=== PATIENT | female | born 1955 | race Caucasian/White ===

== ENCOUNTER 2024-12-14 16:47 | Emergency (ER) | payer OTHER ==
--- OUTSIDE RECORDS SUMMARY | 2024-12-14 16:53 | XMS REPORT | Continuity of Care Document ---
Author Name Unknown Address [address] [facility] [address] [place] [address] [facility] Address [address] [facility] [address] [place] [address] Care Team Providers Care Manager Division Name Role Phone Alicia Woodard Attending Clinician Unavailable Geovanna FORD Attending Clinician Unavailable Payers Payer Name Policy Type Policy Number Effective Date Expirati on Date Source [facility] Medicare Advantage 53 [id number] 00 2020 00:00:00 [facility] Problems Condition Name Condition Details Condition Category Status Onset Date Resolution Date Last Treatment Date Treating Clinician Comments Source [id number] Urinary incontinen ce in female Problem [facility] [id number] History of hepatitis B Problem [facility] [id number] Osteopenia of multiple sites Problem [facility] [id number] Rash and nonspecifi c skin eruption Problem [facility] [id number] Skin lesions Problem [facility] Abnormal mammogram Abnormal mammogram Problem [facility] [id number] Routine eye exam Problem [facility] [id number] Vitamin D deficiency Problem [facility] [id number] Hyperchole sterolemia Problem [facility] [id number] Pain in left shoulder Problem [facility] [id number] History of hysterecto my Problem [facility] [id number] Pain in right knee Problem [facility] Social History Social Habit Start Date Stop Date Quantity Comments Source History of Tobacco Use [facility] Sex Assigned At [facility] Smoking Status Start Date Stop Date Source Never Smoker [facility] Medications Ordered Medication Name Filled Medication Name Start Date Stop Date Current Medication? Ordering Clinician Indication Dosage Frequency Signature (SIG) Comments Components Source Atorvastati n Calcium 40 MG Atorvastati n Calcium 40 MG 01-08 00:00: 00 No 1{table t} QD Atorvastat in Calcium 40 MG Bupivicaine [place] Bupivicaine [place] 2019-05 00:00: 00 No 2.5mg [facility] Kenalog (Triamcinol one) Kenalog (Triamcinol one) 2019-05 00:00: 00 No 40mg [facility] Vitamin D 50 MCG (1999 UT) Vitamin D 50 MCG (1999 UT) No 1{table t} QD Vitamin D 50 MCG (1999 UT) Calcium Calcium No Calcium Biotin 5000 MCG Biotin 5000 MCG No 1{table t} QD Biotin 5000 MCG Centrum Adult 50+ MultiGummie s - Centrum Adult 50+ MultiGummie s - No Centrum Adult 50+ MultiGummi es - Immunizations Ordered Immunization Name Filled Immunization Name Date Status Comments Source Moderna COVID-19 Vaccine (Low Dose Booster) Moderna COVID-19 Vaccine (Low Dose Booster) 2021-02-25 09:40:00 Completed [facility] Moderna COVID-19 Vaccine (Low Dose Booster) Moderna COVID-19 Vaccine (Low Dose Booster) 2021-02-25 09:40:00 Completed [facility] Moderna COVID-19 Vaccine (Low Dose Booster) Moderna COVID-19 Vaccine (Low Dose Booster) 2021-02-25 09:40:00 Completed [facility] Moderna COVID-19 Vaccine (Low Dose Booster) Moderna COVID-19 Vaccine (Low Dose Booster) 2021-02-25 09:40:00 Completed [facility] Moderna COVID-19 Vaccine (Low Dose Booster) Moderna COVID-19 Vaccine (Low Dose Booster) 2021-02-25 09:40:00 Completed [facility] Pneumovax (PPSV23) Pneumovax (PPSV23) 2021-02-03 09:40:00 Completed [facility] Pneumovax (PPSV23) Pneumovax (PPSV23) 2021-02-03 09:40:00 Completed [facility] Pneumovax (PPSV23) Pneumovax (PPSV23) 2021-02-03 09:40:00 Completed [facility] Pneumovax (PPSV23) Pneumovax (PPSV23) 2021-02-03 09:40:00 Completed [facility] Pneumovax (PPSV23) Pneumovax (PPSV23) 2021-02-03 09:40:00 Completed [facility] FLUZONE HIGH DOSE OVER 65 FLUZONE HIGH DOSE OVER 65 2021-02-03 09:38:00 Completed [facility] FLUZONE HIGH DOSE OVER 65 FLUZONE HIGH DOSE OVER 65 2021-02-03 09:38:00 Completed [facility] FLUZONE HIGH DOSE OVER 65 FLUZONE HIGH DOSE OVER 65 2021-02-03 09:38:00 Completed [facility] FLUZONE HIGH DOSE OVER 65 FLUZONE HIGH DOSE OVER 65 2021-02-03 09:38:00 Completed [facility] FLUZONE HIGH DOSE OVER 65 FLUZONE HIGH DOSE OVER 65 2021-02-03 09:38:00 Completed [facility] Moderna COVID-19 Vaccine Moderna COVID-19 Vaccine 2020-06-14 09:39:00 Completed [facility] Moderna COVID-19 Vaccine Moderna COVID-19 Vaccine 2020-06-14 09:39:00 Completed [facility] Moderna COVID-19 Vaccine Moderna COVID-19 Vaccine 2020-06-14 09:39:00 Completed [facility] Moderna COVID-19 Vaccine Moderna COVID-19 Vaccine 2020-06-14 09:39:00 Completed [facility] Moderna COVID-19 Vaccine Moderna COVID-19 Vaccine 2020-06-14 09:39:00 Completed [facility] Moderna COVID-19 Vaccine Moderna COVID-19 Vaccine 2020-05-08 09:39:00 Completed [facility] Moderna COVID-19 Vaccine Moderna COVID-19 Vaccine 2020-05-08 09:39:00 Completed [facility] Moderna COVID-19 Vaccine Moderna COVID-19 Vaccine 2020-05-08 09:39:00 Completed [facility] Moderna COVID-19 Vaccine Moderna COVID-19 Vaccine 2020-05-08 09:39:00 Completed [facility] Moderna COVID-19 Vaccine Moderna COVID-19 Vaccine 2020-05-08 09:39:00 Completed [facility] Bupivicaine [place] Bupivicaine [place] 2020-03-15 16:04:00 Completed [facility] Kenalog (Triamcinolone) Kenalog (Triamcinolone) 2020-03-15 16:03:00 Completed [facility] Prevnar 13 (PCV13) Prevnar 13 (PCV13) 2020-02-18 11:13:00 Completed [facility] Prevnar 13 (PCV13) Prevnar 13 (PCV13) 2020-02-18 11:13:00 Completed [facility] Prevnar 13 (PCV13) Prevnar 13 (PCV13) 2020-02-18 11:13:00 Completed [facility] Prevnar 13 (PCV13) Prevnar 13 (PCV13) 2020-02-18 11:13:00 Completed [facility] Prevnar 13 (PCV13) Prevnar 13 (PCV13) 2020-02-18 11:13:00 Completed [facility] FluAD FluAD 2020-02-18 11:12:00 Completed [facility] FluAD FluAD 2020-02-18 11:12:00 Completed [facility] FluAD FluAD 2020-02-18 11:12:00 Completed [facility] FluAD FluAD 2020-02-18 11:12:00 Completed [facility] FluAD FluAD 2020-02-18 11:12:00 Completed [facility] Flucelvax - single dose syringe Flucelvax - single dose syringe 2019-03-09 08:21:00 Completed [facility] Flucelvax - single dose syringe Flucelvax - single dose syringe 2019-03-09 08:21:00 Completed [facility] Flucelvax - single dose syringe Flucelvax - single dose syringe 2019-03-09 08:21:00 Completed [facility] Flucelvax - single dose syringe Flucelvax - single dose syringe 2019-03-09 08:21:00 Completed [facility] Flucelvax - single dose syringe Flucelvax - single dose syringe 2019-03-09 08:21:00 Completed [facility] Flucelvax - single dose syringe Flucelvax - single dose syringe 2019-03-09 00:00:00 Completed [facility] Flucelvax - multidose vial Flucelvax - multidose vial 2018-03-03 10:25:00 Completed [facility] Flucelvax - multidose vial Flucelvax - multidose vial 2018-03-03 10:25:00 Completed [facility] Flucelvax - multidose vial Flucelvax - multidose vial 2018-03-03 10:25:00 Completed [facility] Flucelvax - multidose vial Flucelvax - multidose vial 2018-03-03 10:25:00 Completed [facility] Flucelvax - multidose vial Flucelvax - multidose vial 2018-03-03 10:25:00 Completed [facility] Adacel (Tdap) Adacel (Tdap) 2015-11-04 09:41:00 Completed [facility] Adacel (Tdap) Adacel (Tdap) 2015-11-04 09:41:00 Completed [facility] Adacel (Tdap) Adacel (Tdap) 2015-11-04 09:41:00 Completed [facility] Adacel (Tdap) Adacel (Tdap) 2015-11-04 09:41:00 Completed [facility] Adacel (Tdap) Adacel (Tdap) 2015-11-04 09:41:00 Completed [facility] Moderna COVID-19 Vaccine Moderna COVID-19 Vaccine Unknown Completed [facility] Flucelvax - multidose vial Flucelvax - multidose vial Unknown Completed [facility] FluAD FluAD Unknown Completed [facility] Flucelvax - single dose syringe Flucelvax - single dose syringe Unknown Completed [facility] Pneumovax (PPSV23) Pneumovax (PPSV23) Unknown Completed [facility] Moderna COVID-19 Vaccine (Low Dose Booster) Moderna COVID-19 Vaccine (Low Dose Booster) Unknown Completed [facility] FLUZONE HIGH DOSE OVER 65 FLUZONE HIGH DOSE OVER 65 Unknown Completed [facility] Adacel (Tdap) Adacel (Tdap) Unknown Completed [facility] Prevnar 13 (PCV13) Prevnar 13 (PCV13) Unknown Completed [facility] Moderna COVID-19 Vaccine Moderna COVID-19 Vaccine Unknown Completed [facility] Flucelvax - multidose vial Flucelvax - multidose vial Unknown Completed [facility] FluAD FluAD Unknown Completed [facility] Flucelvax - single dose syringe Flucelvax - single dose syringe Unknown Completed [facility] Pneumovax (PPSV23) Pneumovax (PPSV23) Unknown Completed [facility] Moderna COVID-19 Vaccine (Low Dose Booster) Moderna COVID-19 Vaccine (Low Dose Booster) Unknown Completed [facility] FLUZONE HIGH DOSE OVER 65 FLUZONE HIGH DOSE OVER 65 Unknown Completed [facility] Adacel (Tdap) Adacel (Tdap) Unknown Completed [facility] Prevnar 13 (PCV13) Prevnar 13 (PCV13) Unknown Completed [facility] Moderna COVID-19 Vaccine Moderna COVID-19 Vaccine Unknown Completed [facility] Flucelvax - multidose vial Flucelvax - multidose vial Unknown Completed [facility] FluAD FluAD Unknown Completed [facility] Flucelvax - single dose syringe Flucelvax - single dose syringe Unknown Completed [facility] Pneumovax (PPSV23) Pneumovax (PPSV23) Unknown Completed [facility] Moderna COVID-19 Vaccine (Low Dose Booster) Moderna COVID-19 Vaccine (Low Dose Booster) Unknown Completed [facility] FLUZONE HIGH DOSE OVER 65 FLUZONE HIGH DOSE OVER 65 Unknown Completed [facility] Adacel (Tdap) Adacel (Tdap) Unknown Completed [facility] Prevnar 13 (PCV13) Prevnar 13 (PCV13) Unknown Completed [facility] Moderna COVID-19 Vaccine Moderna COVID-19 Vaccine Unknown Completed [facility] Flucelvax - multidose vial Flucelvax - multidose vial Unknown Completed [facility] FluAD FluAD Unknown Completed [facility] Flucelvax - single dose syringe Flucelvax - single dose syringe Unknown Completed [facility] Pneumovax (PPSV23) Pneumovax (PPSV23) Unknown Completed [facility] Moderna COVID-19 Vaccine (Low Dose Booster) Moderna COVID-19 Vaccine (Low Dose Booster) Unknown Completed [facility] FLUZONE HIGH DOSE OVER 65 FLUZONE HIGH DOSE OVER 65 Unknown Completed [facility] Adacel (Tdap) Adacel (Tdap) Unknown Completed [facility] Prevnar 13 (PCV13) Prevnar 13 (PCV13) Unknown Completed [facility] Moderna COVID-19 Vaccine Moderna COVID-19 Vaccine Unknown Completed [facility] Flucelvax (ccIIV4) - MDV - 0.5mL Flucelvax (ccIIV4) - MDV - 0.5mL Unknown Completed [facility] FluAD FluAD Unknown Completed [facility] Flucelvax (ccIIV4) - SDS - 0.5mL Flucelvax (ccIIV4) - SDS - 0.5mL Unknown Completed [facility] Pneumovax (PPSV23) Pneumovax (PPSV23) Unknown Completed [facility] Moderna COVID-19 Vaccine (Low Dose Booster) Moderna COVID-19 Vaccine (Low Dose Booster) Unknown Completed [facility] FLUZONE HIGH DOSE OVER 65 FLUZONE HIGH DOSE OVER 65 Unknown Completed [facility] Adacel (Tdap) Adacel (Tdap) Unknown Completed [facility] Prevnar 13 (PCV13) Prevnar 13 (PCV13) Unknown Completed [facility] Moderna COVID-19 Vaccine Moderna COVID-19 Vaccine Unknown Completed [facility] Flucelvax (ccIIV4) - MDV - 0.5mL Flucelvax (ccIIV4) - MDV - 0.5mL Unknown Completed [facility] FluAD FluAD Unknown Completed [facility] Flucelvax (ccIIV4) - SDS - 0.5mL Flucelvax (ccIIV4) - SDS - 0.5mL Unknown Completed [facility] Pneumovax (PPSV23) Pneumovax (PPSV23) Unknown Completed [facility] Moderna COVID-19 Vaccine (Low Dose Booster) Moderna COVID-19 Vaccine (Low Dose Booster) Unknown Completed [facility] FLUZONE HIGH DOSE OVER 65 FLUZONE HIGH DOSE OVER 65 Unknown Completed [facility] Adacel (Tdap) Adacel (Tdap) Unknown Completed [facility] on [facility] Prevnar 13 (PCV13) Prevnar 13 (PCV13) Unknown Completed [facility] Moderna COVID-19 Vaccine Moderna COVID-19 Vaccine Unknown Completed [facility] Flucelvax (ccIIV4) - MDV - 0.5mL Flucelvax (ccIIV4) - MDV - 0.5mL Unknown Completed [facility] FluAD FluAD Unknown Completed [facility] Flucelvax (ccIIV4) - SDS - 0.5mL Flucelvax (ccIIV4) - SDS - 0.5mL Unknown Completed [facility] Pneumovax (PPSV23) Pneumovax (PPSV23) Unknown Completed [facility] Moderna COVID-19 Vaccine (Low Dose Booster) Moderna COVID-19 Vaccine (Low Dose Booster) Unknown Completed [facility] FLUZONE HIGH DOSE OVER 65 FLUZONE HIGH DOSE OVER 65 Unknown Completed [facility] Adacel (Tdap) Adacel (Tdap) Unknown Completed [facility] Prevnar 13 (PCV13) Prevnar 13 (PCV13) Unknown Completed [facility] Moderna COVID-19 Vaccine Moderna COVID-19 Vaccine Unknown Completed [facility] Flucelvax (ccIIV4) - MDV - 0.5mL Flucelvax (ccIIV4) - MDV - 0.5mL Unknown Completed [facility] FluAD FluAD Unknown Completed [facility] Flucelvax (ccIIV4) - SDS - 0.5mL Flucelvax (ccIIV4) - SDS - 0.5mL Unknown Completed [facility] Pneumovax (PPSV23) Pneumovax (PPSV23) Unknown Completed [facility] MODERNA COVID-19 VACCINE (LOW DOSE BOOSTER) MODERNA COVID-19 VACCINE (LOW DOSE BOOSTER) Unknown Completed [facility] FLUZONE HIGH DOSE OVER 65 FLUZONE HIGH DOSE OVER 65 Unknown Completed [facility] Adacel (Tdap) Adacel (Tdap) Unknown Completed [facility] on [facility] Prevnar 13 (PCV13) Prevnar 13 (PCV13) Unknown Completed [facility] Moderna COVID-19 Vaccine Moderna COVID-19 Vaccine Unknown Completed [facility] Flucelvax (ccIIV4) - MDV - 0.5mL Flucelvax (ccIIV4) - MDV - 0.5mL Unknown Completed [facility] FluAD FluAD Unknown Completed [facility] Flucelvax (ccIIV4) - SDS - 0.5mL Flucelvax (ccIIV4) - SDS - 0.5mL Unknown Completed [facility] Pneumovax (PPSV23) Pneumovax (PPSV23) Unknown Completed [facility] MODERNA COVID-19 VACCINE (LOW DOSE BOOSTER) MODERNA COVID-19 VACCINE (LOW DOSE BOOSTER) Unknown Completed [facility] FLUZONE HIGH DOSE OVER 65 FLUZONE HIGH DOSE OVER 65 Unknown Completed [facility] Adacel (Tdap) Adacel (Tdap) Unknown Completed [facility] Prevnar 13 (PCV13) Prevnar 13 (PCV13) Unknown Completed [facility] Moderna COVID-19 Vaccine Moderna COVID-19 Vaccine Unknown Completed [facility] Flucelvax (ccIIV4) - MDV - 0.5mL Flucelvax (ccIIV4) - MDV - 0.5mL Unknown Completed [facility] FluAD FluAD Unknown Completed [facility] Flucelvax (ccIIV4) - SDS - 0.5mL Flucelvax (ccIIV4) - SDS - 0.5mL Unknown Completed [facility] Pneumovax (PPSV23) Pneumovax (PPSV23) Unknown Completed [facility] MODERNA COVID-19 VACCINE (LOW DOSE BOOSTER) MODERNA COVID-19 VACCINE (LOW DOSE BOOSTER) Unknown Completed [facility] FLUZONE HIGH DOSE OVER 65 FLUZONE HIGH DOSE OVER 65 Unknown Completed [facility] Adacel (Tdap) Adacel (Tdap) Unknown Completed [facility] Prevnar 13 (PCV13) Prevnar 13 (PCV13) Unknown Completed [facility] Moderna COVID-19 Vaccine Moderna COVID-19 Vaccine Unknown Completed [facility] Flucelvax (ccIIV4) - MDV - 0.5mL Flucelvax (ccIIV4) - MDV - 0.5mL Unknown Completed [facility] FluAD FluAD Unknown Completed [facility] Flucelvax (ccIIV4) - SDS - 0.5mL Flucelvax (ccIIV4) - SDS - 0.5mL Unknown Completed [facility] Pneumovax (PPSV23) Pneumovax (PPSV23) Unknown Completed [facility] MODERNA COVID-19 VACCINE (LOW DOSE BOOSTER) MODERNA COVID-19 VACCINE (LOW DOSE BOOSTER) Unknown Completed [facility] FLUZONE HIGH DOSE OVER 65 FLUZONE HIGH DOSE OVER 65 Unknown Completed [facility] Adacel (Tdap) Adacel (Tdap) Unknown Completed [facility] Prevnar 13 (PCV13) Prevnar 13 (PCV13) Unknown Completed [facility] Moderna COVID-19 Vaccine Moderna COVID-19 Vaccine Unknown Completed [facility] Flucelvax (ccIIV4) - MDV - 0.5mL Flucelvax (ccIIV4) - MDV - 0.5mL Unknown Completed [facility] FluAD FluAD Unknown Completed [facility] Flucelvax (ccIIV4) - SDS - 0.5mL Flucelvax (ccIIV4) - SDS - 0.5mL Unknown Completed [facility] Pneumovax (PPSV23) Pneumovax (PPSV23) Unknown Completed [facility] MODERNA COVID-19 VACCINE (LOW DOSE BOOSTER) MODERNA COVID-19 VACCINE (LOW DOSE BOOSTER) Unknown Completed [facility] FLUZONE HIGH DOSE OVER 65 FLUZONE HIGH DOSE OVER 65 Unknown Completed [facility] Adacel (Tdap) Adacel (Tdap) Unknown Completed [facility] Prevnar 13 (PCV13) Prevnar 13 (PCV13) [facility] Moderna COVID-19 Vaccine Unknown Completed [facility] Flucelvax (ccIIV4) - MDV - 0.5mL Flucelvax (ccIIV4) - MDV - 0.5mL Unknown Completed [facility] FluAD FluAD Unknown Completed [facility] Flucelvax (ccIIV4) - SDS - 0.5mL Flucelvax (ccIIV4) - SDS - 0.5mL Unknown Completed [facility] Pneumovax (PPSV23) Pneumovax (PPSV23) Unknown Completed [facility] MODERNA COVID-19 VACCINE (LOW DOSE BOOSTER) MODERNA COVID-19 VACCINE (LOW DOSE BOOSTER) Unknown Completed [facility] FLUZONE HIGH DOSE OVER 65 FLUZONE HIGH DOSE OVER 65 Unknown Completed [facility] Adacel (Tdap) Adacel (Tdap) Unknown Completed [facility] Prevnar 13 (PCV13) Prevnar 13 (PCV13) Unknown Completed [facility] Prevnar 20 (PCV20) Prevnar 20 (PCV20) Unknown Completed [facility] Shingrix Shingrix Unknown Completed [facility] Vital Signs Vital Name Observation Time Observation Value Comments Lexi kruger height 2024-07-10 15:40:00 65 [in_i] Commo n [facility] weight 2024-07-10 15:40:00 155 [lb_av] Comm on [facility] temperature 2024-07-10 15:40:00 97.3 [degF] Com [facility] bmi 2024-07-10 15:40:00 25.79 kg/m2 Comm on [facility] oximetry 2024-07-10 15:40:00 97 % Commo n [facility] respiratory rate 2024-07-10 15:40:00 16 /min [facility] blood pressure systolic 2024-07-10 15:40:00 117 mm[Hg] [facility] blood pressure diastolic 2024-07-10 15:40:00 61 mm[Hg] [facility] height 2024-07-10 15:40:00 65 [in_i] Commo n [facility] weight 2024-07-10 15:40:00 155 [lb_av] Comm on [facility] temperature 2024-07-10 15:40:00 97.3 [degF] Com [facility] bmi 2024-07-10 15:40:00 25.79 kg/m2 Comm on [facility] oximetry 2024-07-10 15:40:00 97 % Commo n [facility] respiratory rate 2024-07-10 15:40:00 16 /min [facility] blood pressure systolic 2024-07-10 15:40:00 117 mm[Hg] Common [facility] blood pressure diastolic 2024-07-10 15:40:00 61 mm[Hg] Common [facility] height 2024-01-09 11:00:00 65 [in_i] Commo n [facility] weight 2024-01-09 11:00:00 146 [lb_av] Comm on [facility] temperature 2024-01-09 11:00:00 97.3 [degF] Com [facility] bmi 2024-01-09 11:00:00 24.29 kg/m2 Comm on [facility] oximetry 2024-01-09 11:00:00 98 % Commo n [facility] respiratory rate 2024-01-09 11:00:00 16 /min [facility] blood pressure systolic 2024-01-09 11:00:00 128 mm[Hg] [facility] blood pressure diastolic 2024-01-09 11:00:00 70 mm[Hg] [facility] height 2024-01-09 11:00:00 65 [in_i] Commo n [facility] weight 2024-01-09 11:00:00 146 [lb_av] Comm on [facility] temperature 2024-01-09 11:00:00 97.3 [degF] Com [facility] bmi 2024-01-09 11:00:00 24.29 kg/m2 Comm on [facility] oximetry 2024-01-09 11:00:00 98 % Commo n [facility] respiratory rate 2024-01-09 11:00:00 16 /min [facility] blood pressure systolic 2024-01-09 11:00:00 128 mm[Hg] [facility] blood pressure diastolic 2024-01-09 11:00:00 70 mm[Hg] Common [facility] height 2023-10-09 13:40:00 65 [in_i] Commo n [facility] weight 2023-10-09 13:40:00 150 [lb_av] Comm on [facility] temperature 2023-10-09 13:40:00 97.4 [degF] Com mon [facility] bmi 2023-10-09 13:40:00 24.96 kg/m2 Comm on [facility] oximetry 2023-10-09 13:40:00 99 % Commo n [facility] respiratory rate 2023-10-09 13:40:00 16 /min Common [facility] blood pressure systolic 2023-10-09 13:40:00 124 mm[Hg] [facility] blood pressure diastolic 2023-10-09 13:40:00 76 mm[Hg] [facility] height 2023-07-08 11:40:00 65 [in_i] Commo n [facility] weight 2023-07-08 11:40:00 147 [lb_av] Comm on [facility] temperature 2023-07-08 11:40:00 97.6 [degF] Com [facility] bmi 2023-07-08 11:40:00 24.46 kg/m2 Comm on [facility] oximetry 2023-07-08 11:40:00 98 % Commo n [facility] respiratory rate 2023-07-08 11:40:00 16 /min Common [facility] blood pressure systolic 2023-07-08 11:40:00 128 mm[Hg] Common [facility] blood pressure diastolic 2023-07-08 11:40:00 72 mm[Hg] [facility] height 2023-07-03 11:00:00 65 [in_i] Commo n [facility] weight 2023-07-03 11:00:00 148 [lb_av] Comm on [facility] temperature 2023-07-03 11:00:00 97.4 [degF] Com [facility] bmi 2023-07-03 11:00:00 24.63 kg/m2 Comm on [facility] oximetry 2023-07-03 11:00:00 97 % Commo n [facility] respiratory rate 2023-07-03 11:00:00 16 /min [facility] blood pressure systolic 2023-07-03 11:00:00 124 mm[Hg] [facility] blood pressure diastolic 2023-07-03 11:00:00 59 mm[Hg] [facility] height 2023-07-03 11:00:00 65 [in_i] Commo n [facility] weight 2023-07-03 11:00:00 148 [lb_av] Comm on [facility] temperature 2023-07-03 11:00:00 97.4 [degF] Com mon [facility] bmi 2023-07-03 11:00:00 24.63 kg/m2 Comm on [facility] oximetry 2023-07-03 11:00:00 97 % Commo n [facility] respiratory rate 2023-07-03 11:00:00 16 /min [facility] blood pressure systolic 2023-07-03 11:00:00 124 mm[Hg] [facility] blood pressure diastolic 2023-07-03 11:00:00 59 mm[Hg] [facility] height 2022-10-04 14:00:00 65 [in_i] Commo n [facility] weight 2022-10-04 14:00:00 145 [lb_av] Comm on [facility] bmi 2022-10-04 14:00:00 24.13 kg/m2 Comm on [facility] height 2022-08-08 14:00:00 65 [in_i] Commo n [facility] weight 2022-08-08 14:00:00 144.6 [lb_av] Co mmon [facility] temperature 2022-08-08 14:00:00 97.4 [degF] Com mon [facility] bmi 2022-08-08 14:00:00 24.06 kg/m2 Comm on [facility] oximetry 2022-08-08 14:00:00 98 % Commo n [facility] respiratory rate 2022-08-08 14:00:00 16 /min Common [facility] blood pressure systolic 2022-08-08 14:00:00 128 mm[Hg] Common [facility] blood pressure diastolic 2022-08-08 14:00:00 72 mm[Hg] [facility] height 2022-08-08 14:20:00 65 [in_i] Commo n [facility] weight 2022-08-08 14:20:00 144.6 [lb_av] Co mmon [facility] temperature 2022-08-08 14:20:00 97.4 [degF] Com [facility] bmi 2022-08-08 14:20:00 24.06 kg/m2 Comm on [facility] oximetry 2022-08-08 14:20:00 98 % Commo n [facility] respiratory rate 2022-08-08 14:20:00 16 /min [facility] blood pressure systolic 2022-08-08 14:20:00 128 mm[Hg] Common Spiri [facility] blood pressure diastolic 2022-08-08 14:20:00 72 mm[Hg] [facility] height 2022-03-02 11:20:00 65 [in_i] Commo n [facility] weight 2022-03-02 11:20:00 139 [lb_av] Comm on [facility] temperature 2022-03-02 11:20:00 99.4 [degF] Com [facility] bmi 2022-03-02 11:20:00 23.13 kg/m2 Comm on [facility] height 2022-01-17 09:20:00 65 [in_i] Commo n [facility] weight 2022-01-17 09:20:00 144 [lb_av] Comm on [facility] bmi 2022-01-17 09:20:00 23.96 kg/m2 Comm on [facility] height 2022-01-02 13:40:00 65 [in_i] Commo n [facility] weight 2022-01-02 13:40:00 144.6 [lb_av] Co on [facility] temperature 2022-01-02 13:40:00 97.8 [degF] Com mon [facility] bmi 2022-01-02 13:40:00 24.06 kg/m2 Comm on [facility] oximetry 2022-01-02 13:40:00 100 % Commo n [facility] respiratory rate 2022-01-02 13:40:00 17 /min [facility] blood pressure systolic 2022-01-02 13:40:00 129 mm[Hg] Common [facility] blood pressure diastolic 2022-01-02 13:40:00 60 mm[Hg] [facility] oximetry 2021-04-03 08:00:00 96 % Commo n [facility] respiratory rate 2021-04-03 08:00:00 18 /min [facility] blood pressure systolic 2021-04-03 08:00:00 124 mm[Hg] [facility] blood pressure diastolic 2021-04-03 08:00:00 80 mm[Hg] Common [facility] height 2021-04-03 08:00:00 65 [in_i] Commo n [facility] weight 2021-04-03 08:00:00 148.6 [lb_av] Co mmon [facility] temperature 2021-04-03 08:00:00 97.0 [degF] Com mon [facility] bmi 2021-04-03 08:00:00 24.73 kg/m2 Comm on [facility] height 2021-03-08 08:00:00 65 [in_i] Commo n [facility] weight 2021-03-08 08:00:00 143 [lb_av] Comm on [facility] bmi 2021-03-08 08:00:00 23.79 kg/m2 Comm on [facility] Encounters Start Date/Time End Date/Time Encounter Type Admission Type Attending [facility] Care Facility Care Department Encounter ID Source 2024-06-04 08:55:00 Outpatient WoodardJuanitoi [facility] [id number] [facility] 2024-01-20 08:39:00 Outpatient Woodard Alicia [facility] [id number] [facility] 2023-07-02 13:46:00 Outpatient Woodard, Alicia [facility] [id number] [facility] 2023-07-01 09:48:00 Outpatient WoodardJuanitoi [facility] [id number] [facility] 2022-08-08 14:29:00 Outpatient Woodard Alicia [facility] [id number] [facility] 2022-08-01 15:51:00 Outpatient Woodard Alicia [facility] ST[facility] [id number] [facility] 2022-05-15 12:19:00 Outpatient FORD, Na [facility] ST[facility] [id number] [facility] 2022-04-06 09:17:00 Outpatient Ford, Na [facility] [id number] [facility] 2022-01-15 07:52:00 Outpatient Ford, Na [facility] [id number] [facility] 2022-01-02 13:06:00 Outpatient Ford, Na [facility] [id number] [facility] 2021-05-31 14:35:21 Outpatient Ford, Na [facility] [id number] [facility] 2021-05-31 14:08:11 Outpatient Ford, Na [facility] [id number] [facility] 2021-05-31 14:06:51 Outpatient Ford, Na [facility] [id number] [facility] 2021-05-31 12:38:54 Outpatient Ford, Na [facility] [id number] [facility] 2021-05-31 12:36:44 Outpatient Ford, Na [facility] [id number] [facility] 2021-05-31 12:05:49 Outpatient Ford, Na [facility] [id number] [facility] 2021-05-31 12:03:57 Outpatient Ford, Na [facility] [id number] [facility] 2021-05-31 12:03:28 Outpatient Ford, Na [facility] [id number] [facility] 2021-05-31 11:58:47 Outpatient Ford, Na [facility] [id number] [facility] 2021-05-31 11:57:00 Outpatient Ford, Na [facility] [id number] [facility] 2021-05-31 11:55:30 Outpatient Ford, Na [facility] [id number] [facility] 2021-05-31 11:54:31 Outpatient Ford, Na [facility] [id number] [facility] 2021-05-31 11:52:41 Outpatient Ford, Na [facility] [id number] [facility] 2021-05-31 11:52:10 Outpatient Ford, Na [facility] [id number] [facility] 2024-07-14 00:00:00 2024-07-14 00:00:00 (TEL) [facility] ST[facility] [id number] [facility] 2024-07-10 00:00:00 2024-07-10 00:00:00 OFFICE VISIT ESTAB PT LEVEL 4 [facility] [id number] [facility] 2024-07-10 00:00:00 2024-07-10 00:00:00 [facility] [id number] [facility] 2024-05-18 00:00:00 2024-05-18 00:00:00 (TEL) [facility] ST[facility] [id number] [facility] 2024-04-13 00:00:00 2024-04-13 00:00:00 (TEL) [facility] [id number] [facility] 2024-01-20 00:00:00 2024-01-20 00:00:00 (TEL) [facility] [id number] [facility] 2024-01-09 00:00:00 2024-01-09 00:00:00 OFFICE VISIT ESTAB PT LEVEL 4 [facility] [id number] [facility] 2023-10-09 00:00:00 2023-10-09 00:00:00 OFFICE VISIT ESTAB PT LEVEL 4 [facility] [id number] [facility] 2023-07-08 00:00:00 2023-07-08 00:00:00 (TEL) [facility] [id number] [facility] 2023-07-08 00:00:00 2023-07-08 00:00:00 OFFICE VISIT ESTAB PT LEVEL 3 [facility] [id number] [facility] 2023-07-03 00:00:00 2023-07-03 00:00:00 OFFICE VISIT ESTAB PT LEVEL 4 [facility] [id number] [facility] 2023-07-03 00:00:00 2023-07-03 00:00:00 SUB ANNUAL MCR WELLNESS VISIT [facility] ST[facility] [id number] [facility] 2023-06-25 00:00:00 2023-06-25 00:00:00 (TEL) [facility]C [facility] [id number] [facility] 2023-04-19 00:00:00 2023-04-19 00:00:00 (TEL) [facility] [id number] [facility] 2023-01-08 00:00:00 2023-01-08 00:00:00 OFFICE VISIT ESTAB PT LEVEL 4 [facility] [id number] [facility] 2023-01-03 00:00:00 2023-01-03 00:00:00 (TEL) [facility] [id number] [facility] 2022-10-04 00:00:00 2022-10-04 00:00:00 OFFICE VISIT ESTAB PT LEVEL 4 [facility] [id number] [facility] 2022-08-08 00:00:00 2022-08-08 00:00:00 OFFICE VISIT ESTAB PT LEVEL 4 [facility] [id number] [facility] 2022-08-08 00:00:00 2022-08-08 00:00:00 SUB ANNUAL MCR WELLNESS VISIT [facility] ST[facility] [id number] [facility] 2022-08-01 00:00:00 2022-08-01 00:00:00 (TEL) [facility] [id number] [facility] 2022-04-17 00:00:00 2022-04-17 00:00:00 (TEL) [facility] [id number] [facility] 2022-03-02 00:00:00 2022-03-02 00:00:00 (TEL) [facility] [id number] [facility] 2022-03-02 00:00:00 2022-03-02 00:00:00 OFFICE VISIT EST PT LEVEL 3 [facility] [id number] [facility] 2022-01-17 00:00:00 2022-01-17 00:00:00 OFFICE VISIT EST PT LEVEL 3 [facility] [id number] [facility] 2022-01-02 00:00:00 2022-01-02 00:00:00 OFFICE VISIT EST PT LEVEL 3 [facility] [id number] [facility] 2021-09-27 00:00:00 2021-09-27 00:00:00 (TEL) [facility] [id number] [facility] 2021-09-27 00:00:00 2021-09-27 00:00:00 OFFICE VISIT EST PT LEVEL 3 [facility] [id number] [facility] 2021-04-03 00:00:00 2021-04-03 00:00:00 (MCR WELL) Medicare Wellness [facility] [id number] [facility] 2021-03-08 00:00:00 2021-03-08 00:00:00 OFFICE VISIT EST PT LEVEL 3 [facility] [id number] [facility] 2021-03-02 00:00:00 2021-03-02 00:00:00 (TEL) [facility] [id number] [facility] 2021-01-12 00:00:00 2021-01-12 00:00:00 Outpatient [facility] [id number] [facility] 2021-01-12 00:00:00 2021-01-12 00:00:00 NON-BILLAB LE VISIT [facility]C [facility] [id number] [facility] 2021-01-05 00:00:00 2021-01-05 00:00:00 Outpatient [facility] [id number] [facility] 2021-01-05 00:00:00 2021-01-05 00:00:00 Outpatient [facility] [id number] [facility] 2020-07-15 00:00:00 2020-07-15 00:00:00 Outpatient [facility] [id number] [facility] 2020-03-24 00:00:00 2020-03-24 00:00:00 Outpatient [facility] [id number] [facility] 2020-03-24 00:00:00 2020-03-24 00:00:00 Outpatient [facility] [id number] [facility] 2020-03-15 00:00:00 2020-03-15 00:00:00 Outpatient [facility] [id number] [facility] 2020-03-07 00:00:00 2020-03-07 00:00:00 Outpatient [facility] [id number] [facility] 2020-02-26 00:00:00 2020-02-26 00:00:00 Outpatient [facility] [id number] [facility] 2020-02-18 00:00:00 2020-02-18 00:00:00 Outpatient [facility] [id number] [facility] 2019-03-09 08:00:00 2019-03-09 08:00:00 Outpatient [facility] [id number] [facility] 2019-02-09 14:41:00 2019-02-09 14:41:00 Outpatient [facility] Medicine [id number] [facility] 2018-08-05 14:37:00 2018-08-05 14:37:00 Outpatient [facility] [id number] [facility] 2018-06-10 20:21:00 2018-06-10 20:21:00 Outpatient [facility] [id number] [facility] 2018-06-10 11:15:00 2018-06-10 11:15:00 Outpatient [facility] [id number] [facility] 2018-06-04 20:49:00 2018-06-04 20:49:00 Outpatient [facility] [id number] [facility] 2018-06-04 10:15:00 2018-06-04 10:15:00 Outpatient [facility] [id number] [facility] Results Test Description Test Time Test Comments Results Result Co mments Source COMPREHENSIVE METABOLIC [id number] 00:00:00* Test Item Value Reference Range Interpretation Comme nts NUCLEATED RBCS (test code = 78546-8) 0.0 /100 WBC'S See_Comment [Automated message] The system which generated this result transmitted reference range: 0.0 /100 WBC'S. The reference range was not used to interpret this result as normal/abnormal. ABSOLUTE EOSINOPHILS (test code = 41732-3) 0.10 K/UL See_Comment [Automated message] The system which generated this result transmitted reference range: 0.00-0.50 K/UL. The reference range was not used to interpret this result as normal/abnormal. ABSOLUTE LYMPHOCYTES (test code = 96359-7) 1.13 K/UL See_Comment [Automated message] The system which generated this result transmitted reference range: 1.00-4.00 K/UL. The reference range was not used to interpret this result as normal/abnormal. ABSOLUTE MONOCYTES (test code = 13107-5) 0.25 K/UL See_Comment [Automated message] The system which generated this result transmitted reference range: 0.20-1.00 K/UL. The reference range was not used to interpret this result as normal/abnormal. ABSOLUTE NEUTROPHILS (test code = 09987-5) 2.77 K/UL See_Comment [Automated message] The system which generated this result transmitted reference range: 1.50-7.50 K/UL. The reference range was not used to interpret this result as normal/abnormal. BASOPHILS (test code = 78588-2) 0.7 % EOSINOPHILS (test code = 44174-9) 2.3 % HEMATOCRIT (test code = 05368-2) 38.7 % See_Comment [Automated messa ge] The system which generated this result transmitted reference range: 34.0-45.0 %. The reference range was not used to interpret this result as normal/abnormal. HEMOGLOBIN (test code = 718-7) 12.5 G/DL See_Comment [Automated messa ge] The system which generated this result transmitted reference range: 11.5-15.5 G/DL. The reference range was not used to interpret this result as normal/abnormal. LYMPHOCYTES (test code = 43397-0) 26.3 % MCH (test code = 49811-9) 28.5 PG See_Comment [Automated messa ge] The system which generated this result transmitted reference range: 25.0-33.0 PG. The reference range was not used to interpret this result as normal/abnormal. MCHC (test code = 94218-9) 32.3 G/DL See_Comment [Automated messa ge] The system which generated this result transmitted reference range: 31.0-36.0 G/DL. The reference range was not used to interpret this result as normal/abnormal. MCV (test code = 32262-8) 88.2 fL See_Comment [Automated messa ge] The system which generated this result transmitted reference range: 80.0-99.0 fL. The reference range was not used to interpret this result as normal/abnormal. MONOCYTES (test code = 55514-7) 5.8 % NEUTROPHILS (test code = 45275-3) 64.7 % PLATELET COUNT (test code = 19528-1) 193 K/UL See_Comment [Automated messa ge] The system which generated this result transmitted reference range: 130-400 K/UL. The reference range was not used to interpret this result as normal/abnormal. RBC (test code = 20475-8) 4.39 M/UL See_Comment [Automated messa ge] The system which generated this result transmitted reference range: 3.80-5.40 M/UL. The reference range was not used to interpret this result as normal/abnormal. RDW (test code = 40369-5) 12.7 % See_Comment [Automated messa ge] The system which generated this result transmitted reference range: 11.5-15.0 %. The reference range was not used to interpret this result as normal/abnormal. WBC (test code = 49114-1) 4.3 K/UL See_Comment [Automated messa ge] The system which generated this result transmitted reference range: 3.5-11.0 K/UL. The reference range was not used to interpret this result as normal/abnormal. HEMOGLOBIN A1c (test code = 4548-4) 5.8 % See_Comment H [Automated messa ge] The system which generated this result transmitted reference range: 4.2-5.6 %. The reference range was not used to interpret this result as normal/abnormal. VITAMIN D,1,25-DIHYDROXY (test code = 1649-3) 60.7 PG/ML See_Comment [Automated messa ge] The system which generated this result transmitted reference range: 20.0-82.0 PG/ML. The reference range was not used to interpret this result as normal/abnormal. CALC LDL CHOL (test code = 36689-1) 148 MG/DL See_Comment H [Automated messa ge] The system which generated this result transmitted reference range: <100 MG/DL. The reference range was not used to interpret this result as normal/abnormal. CHOLESTEROL (test code = 2093-3) 241 MG/DL See_Comment H [Automated messa ge] The system which generated this result transmitted reference range: <200 MG/DL. The reference range was not used to interpret this result as normal/abnormal. HDL CHOLESTEROL (test code = 2085-9) 71 MG/DL See_Comment [Automated messa ge] The system which generated this result transmitted reference range: >39 MG/DL. The reference range was not used to interpret this result as normal/abnormal. RISK RATIO LDL/HDL (test code = 47743-2) 2.08 RATIO See_Comment [Automated message] The system which generated this result transmitted reference range: <3.22 RATIO. The reference range was not used to interpret this result as normal/abnormal. TRIGLYCERIDES (test code = 2571-8) 108 MG/DL See_Comment [Automated messa ge] The system which generated this result transmitted reference range: <150 MG/DL. The reference range was not used to interpret this result as normal/abnormal. ALBUMIN (test code = 1751-7) 4.7 G/DL See_Comment [Automated messa ge] The system which generated this result transmitted reference range: 3.5-5.2 G/DL. The reference range was not used to interpret this result as normal/abnormal. ALKALINE PHOSPHATASE (test code = 6768-6) 64 U/L See_Comment [Automated message] The system which generated this result transmitted reference range: 40-142 U/L. The reference range was not used to interpret this result as normal/abnormal. BILIRUBIN, TOTAL (test code = 1975-2) 0.5 MG/DL See_Comment [Automated messa ge] The system which generated this result transmitted reference range: <=1.2 MG/DL. The reference range was not used to interpret this result as normal/abnormal. BUN (test code = 3094-0) 16 MG/DL See_Comment [Automated messa ge] The system which generated this result transmitted reference range: 8-23 MG/DL. The reference range was not used to interpret this result as normal/abnormal. CALCIUM (test code = 52314-1) 10.1 MG/DL See_Comment [Automated messa ge] The system which generated this result transmitted reference range: 8.5-10.5 MG/DL. The reference range was not used to interpret this result as normal/abnormal. CALC A/G RATIO (test code = 1759-0) 2.1 RATIO See_Comment [Automated messa ge] The system which generated this result transmitted reference range: 1.0-2.6 RATIO. The reference range was not used to interpret this result as normal/abnormal. CALC BUN/CREAT (test code = 3097-3) 18 RATIO See_Comment [Automated messa ge] The system which generated this result transmitted reference range: 6-28 RATIO. The reference range was not used to interpret this result as normal/abnormal. CALC GLOBULIN (test code = 08371-9) 2.2 G/DL See_Comment [Automated messa ge] The system which generated this result transmitted reference range: 1.9-3.7 G/DL. The reference range was not used to interpret this result as normal/abnormal. CARBON DIOXIDE (test code = 1962-8) 28 MEQ/L See_Comment [Automated messa ge] The system which generated this result transmitted reference range: 19-31 MEQ/L. The reference range was not used to interpret this result as normal/abnormal. CHLORIDE (test code = 5-0) 105 MEQ/L See_Comment [Automated messa ge] The system which generated this result transmitted reference range: 95-107 MEQ/L. The reference range was not used to interpret this result as normal/abnormal. CREATININE (test code = 2160-0) 0.88 MG/DL See_Comment [Automated messa ge] The system which generated this result transmitted reference range: 0.60-1.30 MG/DL. The reference range was not used to interpret this result as normal/abnormal. eGFR (2020 CKD-EPI) (test code = 20689-1) 71 ML/MIN/1.73 See_Comment [Automated message] The system which generated this result transmitted reference range: >60 ML/MIN/1.73. The reference range was not used to interpret this result as normal/abnormal. GLUCOSE (test code = 1558-6) 101 MG/DL See_Comment H [Automated messa ge] The system which generated this result transmitted reference range: 70-99 MG/DL. The reference range was not used to interpret this result as normal/abnormal. POTASSIUM (test code = 2823-3) 4.8 MEQ/L See_Comment [Automated messa ge] The system which generated this result transmitted reference range: 3.5-5.4 MEQ/L. The reference range was not used to interpret this result as normal/abnormal. PROTEIN, TOTAL (test code = 2885-2) 6.9 G/DL See_Comment [Automated messa ge] The system which generated this result transmitted reference range: 6.1-8.3 G/DL. The reference range was not used to interpret this result as normal/abnormal. AST (test code = 1920-8) 20 U/L See_Comment [Automated messa ge] The system which generated this result transmitted reference range: 9-40 U/L. The reference range was not used to interpret this result as normal/abnormal. ALT (test code = 1742-6) 18 U/L See_Comment [Automated messa ge] The system which generated this result transmitted reference range: 5-40 U/L. The reference range was not used to interpret this result as normal/abnormal. SODIUM (test code = 2951-2) 144 MEQ/L See_Comment [Automated messa ge] The system which generated this result transmitted reference range: 133-146 MEQ/L. The reference range was not used to interpret this result as normal/abnormal. CBC W/AUTO [id number] 00:00:00* Test Item Value Reference Range Interpretation Comme nts NUCLEATED RBCS (test code = 65900-9) 0.0 /100 WBC'S See_Comment [Automated messa ge] The system which generated this result transmitted reference range: 0.0 /100 WBC'S. The reference range was not used to interpret this result as normal/abnormal. ABSOLUTE EOSINOPHILS (test code = 95081-4) 0.10 K/UL See_Comment [Automated messa ge] The system which generated this result transmitted reference range: 0.00-0.50 K/UL. The reference range was not used to interpret this result as normal/abnormal. ABSOLUTE LYMPHOCYTES (test code = 29218-3) 1.36 K/UL See_Comment [Automated messa ge] The system which generated this result transmitted reference range: 1.00-4.00 K/UL. The reference range was not used to interpret this result as normal/abnormal. ABSOLUTE MONOCYTES (test code = 60071-4) 0.29 K/UL See_Comment [Automated messa ge] The system which generated this result transmitted reference range: 0.20-1.00 K/UL. The reference range was not used to interpret this result as normal/abnormal. ABSOLUTE NEUTROPHILS (test code = 64344-3) 2.08 K/UL See_Comment [Automated messa ge] The system which generated this result transmitted reference range: 1.50-7.50 K/UL. The reference range was not used to interpret this result as normal/abnormal. BASOPHILS (test code = 61638-9) 1.0 % EOSINOPHILS (test code = 05673-9) 2.6 % HEMATOCRIT (test code = 78428-6) 37.2 % See_Comment [Automated messa ge] The system which generated this result transmitted reference range: 34.0-45.0 %. The reference range was not used to interpret this result as normal/abnormal. HEMOGLOBIN (test code = 718-7) 12.1 G/DL See_Comment [Automated messa ge] The system which generated this result transmitted reference range: 11.5-15.5 G/DL. The reference range was not used to interpret this result as normal/abnormal. LYMPHOCYTES (test code = 98105-6) 35.1 % MCH (test code = 09084-8) 28.3 PG See_Comment [Automated messa ge] The system which generated this result transmitted reference range: 25.0-33.0 PG. The reference range was not used to interpret this result as normal/abnormal. MCHC (test code = 03984-3) 32.5 G/DL See_Comment [Automated messa ge] The system which generated this result transmitted reference range: 31.0-36.0 G/DL. The reference range was not used to interpret this result as normal/abnormal. MCV (test code = 98732-8) 87.1 fL See_Comment [Automated messa ge] The system which generated this result transmitted reference range: 80.0-99.0 fL. The reference range was not used to interpret this result as normal/abnormal. MONOCYTES (test code = 32022-8) 7.5 % NEUTROPHILS (test code = 02862-6) 53.8 % PLATELET COUNT (test code = 18237-8) 192 K/UL See_Comment [Automated messa ge] The system which generated this result transmitted reference range: 130-400 K/UL. The reference range was not used to interpret this result as normal/abnormal. RBC (test code = 34527-5) 4.27 M/UL See_Comment [Automated messa ge] The system which generated this result transmitted reference range: 3.80-5.40 M/UL. The reference range was not used to interpret this result as normal/abnormal. RDW (test code = 15394-2) 12.9 % See_Comment [Automated messa ge] The system which generated this result transmitted reference range: 11.5-15.0 %. The reference range was not used to interpret this result as normal/abnormal. WBC (test code = 83405-9) 3.9 K/UL See_Comment [Automated messa ge] The system which generated this result transmitted reference range: 3.5-11.0 K/UL. The reference range was not used to interpret this result as normal/abnormal. CBC W/AUTO [id number] 00:00:00* Test Item Value Reference Range Interpretation Comme nts NUCLEATED RBCS (test code = 79866-9) 0.0 /100 WBC'S See_Comment [Automated messa ge] The system which generated this result transmitted reference range: 0.0 /100 WBC'S. The reference range was not used to interpret this result as normal/abnormal. ABSOLUTE EOSINOPHILS (test code = 94197-5) 0.11 K/UL See_Comment [Automated messa ge] The system which generated this result transmitted reference range: 0.00-0.50 K/UL. The reference range was not used to interpret this result as normal/abnormal. ABSOLUTE LYMPHOCYTES (test code = 25497-0) 1.26 K/UL See_Comment [Automated messa ge] The system which generated this result transmitted reference range: 1.00-4.00 K/UL. The reference range was not used to interpret this result as normal/abnormal. ABSOLUTE MONOCYTES (test code = 47082-3) 0.36 K/UL See_Comment [Automated messa ge] The system which generated this result transmitted reference range: 0.20-1.00 K/UL. The reference range was not used to interpret this result as normal/abnormal. ABSOLUTE NEUTROPHILS (test code = 54390-4) 2.13 K/UL See_Comment [Automated messa ge] The system which generated this result transmitted reference range: 1.50-7.50 K/UL. The reference range was not used to interpret this result as normal/abnormal. BASOPHILS (test code = 64237-8) 0.8 % EOSINOPHILS (test code = 41634-5) 2.8 % HEMATOCRIT (test code = 56877-7) 36.4 % See_Comment [Automated messa ge] The system which generated this result transmitted reference range: 34.0-45.0 %. The reference range was not used to interpret this result as normal/abnormal. HEMOGLOBIN (test code = 718-7) 12.2 G/DL See_Comment [Automated messa ge] The system which generated this result transmitted reference range: 11.5-15.5 G/DL. The reference range was not used to interpret this result as normal/abnormal. LYMPHOCYTES (test code = 26723-2) 32.3 % MCH (test code = 66326-0) 29.3 PG See_Comment [Automated messa ge] The system which generated this result transmitted reference range: 25.0-33.0 PG. The reference range was not used to interpret this result as normal/abnormal. MCHC (test code = 04264-8) 33.5 G/DL See_Comment [Automated messa ge] The system which generated this result transmitted reference range: 31.0-36.0 G/DL. The reference range was not used to interpret this result as normal/abnormal. MCV (test code = 75292-3) 87.3 fL See_Comment [Automated messa ge] The system which generated this result transmitted reference range: 80.0-99.0 fL. The reference range was not used to interpret this result as normal/abnormal. MONOCYTES (test code = 48938-0) 9.2 % NEUTROPHILS (test code = 18805-1) 54.6 % PLATELET COUNT (test code = 49721-9) 178 K/UL See_Comment [Automated messa ge] The system which generated this result transmitted reference range: 130-400 K/UL. The reference range was not used to interpret this result as normal/abnormal. RBC (test code = 71751-7) 4.17 M/UL See_Comment [Automated messa ge] The system which generated this result transmitted reference range: 3.80-5.40 M/UL. The reference range was not used to interpret this result as normal/abnormal. RDW (test code = 87819-2) 13.0 % See_Comment [Automated messa ge] The system which generated this result transmitted reference range: 11.5-15.0 %. The reference range was not used to interpret this result as normal/abnormal. WBC (test code = 93197-7) 3.9 K/UL See_Comment [Automated messa ge] The system which generated this result transmitted reference range: 3.5-11.0 K/UL. The reference range was not used to interpret this result as normal/abnormal. Comp. Metabolic Panel (14) ([facility])2021-09-14 00:00:00* Test Item Value Reference Range Interpretation Comme nts Glucose (test code = 2345-7) 86 mg/dL See_Comment [Automated messa ge] The system which generated this result transmitted reference range: 65-99 mg/dL. The reference range was not used to interpret this result as normal/abnormal. BUN (test code = 3094-0) 12 mg/dL See_Comment [Automated messa ge] The system which generated this result transmitted reference range: 8-27 mg/dL. The reference range was not used to interpret this result as normal/abnormal. Creatinine (test code = 2160-0) 0.89 mg/dL See_Comment [Automated messa ge] The system which generated this result transmitted reference range: 0.57-1.00 mg/dL. The reference range was not used to interpret this result as normal/abnormal. BUN/Creatinine Ratio (test code = 3097-3) 13 12-28 Sodium (test code = 2951-2) 144 mmol/L See_Comment [Automated messa ge] The system which generated this result transmitted reference range: 134-144 mmol/L. The reference range was not used to interpret this result as normal/abnormal. Potassium (test code = 2823-3) 3.9 mmol/L See_Comment [Automated messa ge] The system which generated this result transmitted reference range: 3.5-5.2 mmol/L. The reference range was not used to interpret this result as normal/abnormal. Chloride (test code = 2075-0) 103 mmol/L See_Comment [Automated messa ge] The system which generated this result transmitted reference range: 96-106 mmol/L. The reference range was not used to interpret this result as normal/abnormal. Carbon Dioxide, Total (test code = 2028-9) 27 mmol/L See_Comment [Automated message] The system which generated this result transmitted reference range: 20-29 mmol/L. The reference range was not used to interpret this result as normal/abnormal. Calcium (test code = 15353-6) 9.4 mg/dL See_Comment [Automated messa ge] The system which generated this result transmitted reference range: 8.7-10.3 mg/dL. The reference range was not used to interpret this result as normal/abnormal. Protein, Total (test code = 2885-2) 6.7 g/dL See_Comment [Automated messa ge] The system which generated this result transmitted reference range: 6.0-8.5 g/dL. The reference range was not used to interpret this result as normal/abnormal. Albumin (test code = 1751-7) 4.6 g/dL See_Comment [Automated messa ge] The system which generated this result transmitted reference range: 3.8-4.8 g/dL. The reference range was not used to interpret this result as normal/abnormal. Globulin, Total (test code = 80525-2) 2.1 g/dL See_Comment [Automated messa ge] The system which generated this result transmitted reference range: 1.5-4.5 g/dL. The reference range was not used to interpret this result as normal/abnormal. A/G Ratio (test code = 1759-0) 2.2 1.2-2.2 Bilirubin, Total (test code = 1975-2) 0.5 mg/dL See_Comment [Automated messa ge] The system which generated this result transmitted reference range: 0.0-1.2 mg/dL. The reference range was not used to interpret this result as normal/abnormal. Alkaline Phosphatase (test code = 6768-6) 69 IU/L See_Comment [Automated message] The system which generated this result transmitted reference range: 44-121 IU/L. The reference range was not used to interpret this result as normal/abnormal. AST (SGOT) (test code = 1920-8) 19 IU/L See_Comment [Automated messa ge] The system which generated this result transmitted reference range: 0-40 IU/L. The reference range was not used to interpret this result as normal/abnormal. ALT (SGPT) (test code = 1742-6) 13 IU/L See_Comment [Automated messa ge] The system which generated this result transmitted reference range: 0-32 IU/L. The reference range was not used to interpret this result as normal/abnormal. DEXA, BONE DENSITY AXIAL SKELEDEXA, BONE DENSITY AXIAL SKELE
[2024-12-14 18:35] LABS: Absolute Lymphocytes (CBC) 1.6 K/uL (0.7-4.9); Hematocrit 38.2 % (36.0-45.0); Hemoglobin 12.8 g/dL (12.0-15.0); MCH 28.3 pg (27.0-35.0); MCHC 33.4 g/dL (32.0-36.0); MCV 84.6 fL (80-100); MPV 9.8 fL (7.6-11.3); Nucleated RBC Absolute Count 0.0 (0-0); Nucleated Red Blood Cells % 0.0 % (0-0); RBC Red Blood Cell Count 4.51 M/uL (3.86-4.86); White Blood Count 8.20 thou/uL (4.3-10.9)
[2024-12-14 18:53] LABS: ALT/SGPT 38.0 U/L (13-56); AST/SGOT 24.0 U/L (15-37); Albumin 3.9 g/dL (3.4-5.0); Albumin/Globulin Ratio 1.1 (1.1-1.8); Alkaline Phosphatase 77.0 U/L (45-117); Anion Gap 7.6 mEq/L (5.0-15.0); BUN Blood Urea Nitrogen 9.0 mg/dL (7-18); Globulin 3.5 g/dL (2.3-3.5); Glucose Level 89.0 mg/dL (74-106); Lipase 27.0 U/L (13-75); Potassium 3.6 mEq/L (3.5-5.1)
--- NOTE | 2024-12-14 19:36 | RAD REPORT ---
EXAMINATION: Abdomen Pelvis W Contrast CLINICAL INDICATION: Female, 69 years old.ABD PAIN TECHNIQUE: CT abdomen and pelvis was performed, after the administration of IV contrast, [facility]. Axial, sagittal and coronal reconstructions were obtained. One or more of the following dose reduction techniques were used: Automated exposure control, adjustment of the mA and/o r kV according to patient size, and/or iterative reconstruction. Unless otherwise specified, incidental findings do not require dedicated imaging follow-up. [id number]. COMPARISON: 02/04/2023 FINDINGS: LOWER CHEST: No acute process identified.No significant pericardial effusion. UPPER GI: No significant abnormality. LIVER: Hepatic steatosis. Benign appearing and/or stable lesions are identified. No suspicious mass. GALLBLADDER/BILE DUCTS: No biliary ductal dilatation.? PANCREAS: No mass, ductal dilation, or ila-pancreatic fluid. SPLEEN: Unremarkable. ADRENALS: No adrenal masses. KIDNEYS AND URETERS: No hydronephrosis.Low density and/or too small to characterize renal lesions whi ch are statistically benign.No renal calculi.No ureteral calculi. ABDOMINAL AORTA AND OTHER VESSELS: Mild atherosclerotic changes. PERITONEUM: No abnormal free fluid. No free air. LYMPH NODES: No pathologic lymphadenopathy. ABDOMINAL WALL: Unremarkable SMALL BOWEL/COLON: Wall thickening extending from the descending colon to the rectum.Normal appendix. Mild diverticulosis without diverticulitis. URINARY BLADDER: Underdistended but grossly unremarkable. REPRODUCTIVE ORGANS: No pathologic process. MUSCULOSKELETAL: No acute or suspicious osseous abnormality. ADDITIONAL FINDINGS: None. IMPRESSION: Colitis extending from the descending colon through the rectum. No other acute findings identified. Incidental findings as noted above.
--- NOTE | 2024-12-14 19:53 | ER ---
Nurse's Notes [facility] Name: Stacey Mari Age: 69 yrs Sex: Female : 1955 Arrival Date: 12/14/2024 Time: 16:47 Bed 25 Private MD: Diagnosis: Colitis Presentation: 12/14 17:37 Chief complaint: Patient states: SHE HAS HAD DIARRHEA AND STOMACH PAIN SINCE SATURDAY. dd2 Coronavirus screen: At this time, the client does not indicate any symptoms associated with coronavirus-19. Ebola Screen: No symptoms or risks identified at this time. Initial Sepsis Screen: Does the patient meet any 2 criteria? No. Patient's initial sepsis screen is negative. Does the patient have a suspected source of infection? No. Patient's initial sepsis screen is negative. Risk Assessment: Do you want to hurt yourself or someone else? Patient reports no desire to harm self or others. Onset of symptoms was December 11, 2024. 17:37 Method Of Arrival: Ambulatory dd2 17:37 Acuity: CORTEZ 3 dd2 Triage Assessment: 17:39 General: Appears in no apparent distress. uncomfortable, Behavior is calm, cooperative, dd2 appropriate for age. Pain: Complains of pain in right lower quadrant and left lower quadrant Pain currently is 6 out of 10 on a pain scale. GI: Abd is soft X 4 quads Abdomen is tender to palpation in left lower quadrant Reports lower abdominal pain, cramping, diarrhea. Historical: - Allergies: 17:39 No Known Allergies; dd2 - PMHx: 17:39 Hypercholesterolemia; dd2 - PSHx: 17:39 Total abdominal hysterectomy; dd2 - Immunization history:: Adult Immunizations up to date. - Infectious Disease History:: Denies. - Social history:: Smoking status: Patient denies any tobacco usage or history of. Screenin:06 [facility] ED Fall Risk Assessment (Adult) History of falling in the last 3 months, jb4 including since admission No falls in past 3 months (0 pts) Confusion or Disorientation No (0 pts) Intoxicated or Sedated No (0 pts) Impaired Gait No (0 pts) Mobility Assist Device Used No (0 pt) Altered Elimination No (0 pt) Score/Fall Risk Level 0 - 2 = Low Risk Oriented to surroundings, Maintained a safe environment. Abuse screen: Denies threats or abuse. Nutritional screening: No deficits noted. Tuberculosis screening: No symptoms or risk factors identified. Assessment: 18:57 General: Appears in no apparent distress. comfortable, Behavior is calm, cooperative, jb4 appropriate for age. Pain: Complains of pain in abdomen Pain does not radiate. Pain currently is 6 out of 10 on a pain scale. Neuro: Level of Consciousness is awake, alert, obeys commands, Oriented to person, place, time, situation. Cardiovascular: Patient's skin is warm and dry. Respiratory: Airway is patent Respiratory effort is even, unlabored, Respiratory pattern is regular, symmetrical. Derm: Skin is intact, Skin is pink, warm \T\ dry. Musculoskeletal: Circulation, motion, and sensation intact. Range of motion: intact in all extremities. Vital Signs: 17:37 BP 126 / 72; Pulse 76; Resp 16; Temp 98.4; Pulse Ox 100% on R/A; Weight 68.04 kg; Pain dd2 6/10; 19:20 BP 116 / 64; Pulse 65; Resp 16; Pulse Ox 99% on R/A; jb4 17:37 Pain Scale: Adult dd2 ED Course: 16:49 Patient arrived in ED. im 17:15 [facility]C [facility]. kb 17:15 Ridge Martines MD is Attending Physician. kb 17:39 Triage completed. dd2 17:39 Arm band placed on right wrist. dd2 17:40 Radiology exam delayed due to lab results not completed at this time. (BUN/Creatinine) nj IV insertion attempt and/or patient not having appropriate IV at this time. 18:29 CBC with Diff Sent. bc6 18:29 CMP Sent. bc6 18:30 Lipase Sent. bc6 18:30 Initial lab(s) drawn, by pa, sent to lab. Inserted saline lock: 20 gauge in right bc6 antecubital area, using aseptic technique. Blood collected. Flushed with 10 mL NS. 19:12 CT Abd/Pelvis - IV Contrast Only In Process Unspecified. EDMS 20:06 Patient has correct armband on for positive identification. Bed in low position. Call jb4 light in reach. Side rails up X 1. Provided Education on: discharge instructions.. 20:06 No provider procedures requiring assistance completed. IV discontinued, intact, jb4 bleeding controlled, No redness/swelling at site. Pressure dressing applied. Administered Medications: 20:06 Drug: Ciprofloxacin PO 500 mg PO once Route: PO; jb4 20:06 Follow up: Response: Medication administered at discharge. jb4 20:06 Drug: metroNIDAZOLE PO 500 mg PO once Route: PO; jb4 20:06 Follow up: Response: Medication administered at discharge. jb4 Medication: 20:06 VIS not applicable for this client. jb4 Outcome: 19:53 Discharge ordered by . kb 20:07 Patient left the ED. jb4 Signatures: Dispatcher [employer] EDMS Katie Malhotra, ASSAYER HELPER-C ASSAYER HELPER-CkJak Carlton, RN RN jb4 Cecilio Negrete Breana bc6 Hannah Mcneil DIANA RN RN dd2
--- NOTE | 2024-12-14 19:53 | EDPHYS ---
Physician Documentation [facility] Name: Stacey Mari Age: 69 yrs Sex: Female : 1955 Arrival Date: 12/14/2024 Time: 16:47 Bed 25 Private MD: Ridge Sears HPI: 12/14 19:20 This 69 yrs old Female presents to ER via Ambulatory with complaints of Diarrhea. kb 19:20 Patient is a 69-year-old female who presents for diarrhea and left lower quadrant pain kb that started 4 days ago. Denies nausea, vomiting, fever.. Historical: - Allergies: 17:39 No Known Allergies; dd2 - PMHx: 17:39 Hypercholesterolemia; dd2 - PSHx: 17:39 Total abdominal hysterectomy; dd2 - Immunization history:: Adult Immunizations up to date. - Infectious Disease History:: Denies. - Social history:: Smoking status: Patient denies any tobacco usage or history of. ROS: 19:20 Constitutional: As per HPI kb Exam: 19:20 Constitutional: This is a well developed, well nourished patient who is awake, alert, kb and in no acute distress. Head/Face: Normocephalic, atraumatic. ENT: Moist Mucous membranes Cardiovascular: Regular rate Respiratory: Respirations even and unlabored. No increased work of breathing. Talking in full sentences Skin: Warm, dry with normal turgor. Normal color. MS/ Extremity: Pulses equal, no cyanosis. Neurovascular intact. Full, normal range of motion. Neuro: Awake and alert, GCS 15, oriented to person, place, time, and situation. 19:20 Abdomen/GI: Inspection: abdomen appears normal, Bowel sounds: normal, Palpation: soft, in all quadrants, mild abdominal tenderness, in the left lower quadrant, Vital Signs: 17:37 BP 126 / 72; Pulse 76; Resp 16; Temp 98.4; Pulse Ox 100% on R/A; Weight 68.04 kg; Pain dd2 6/10; 19:20 BP 116 / 64; Pulse 65; Resp 16; Pulse Ox 99% on R/A; jb4 17:37 Pain Scale: Adult dd2 MDM: 17:15 Medical Screening Exam initiated kb 19:21 Data reviewed: vital signs, nurses notes. Historians other than the Patient: rajinder Spouse/Significant Other: . 19:52 Differential diagnosis: diverticulitis, colitis, gastroenteritis. Consideration of kb Admission/Observation Escalation of care including admission/observation considered. admission considered but labs reassuring, pt nontoxic in appearance, afebrile. Counseling: I had a detailed discussion with the patient and/or guardian regarding the historical points, exam findings, and any diagnostic results supporting the discharge/admit diagnosis, lab results, radiology results, the need for outpatient follow up, a family practitioner, to return to the emergency department if symptoms worsen or persist or if there are any questions or concerns that arise at home. 12/14 17:39 Order name: CBC with Diff; Complete Time: 18:39 kb 12/14 17:39 Order name: CMP; Complete Time: 18:58 kb 12/14 17:39 Order name: Lipase; Complete Time: 18:58 kb 12/14 17:39 Order name: CT Abd/Pelvis - IV Contrast Only; Complete Time: 19:47 kb 12/14 17:39 Order name: IV Saline Lock; Complete Time: 18:29 kb 12/14 17:39 Order name: Labs collected and sent; Complete Time: 18:29 kb Administered Medications: 20:06 Drug: Ciprofloxacin PO 500 mg PO once Route: PO; jb4 20:06 Follow up: Response: Medication administered at discharge. jb4 20:06 Drug: metroNIDAZOLE PO 500 mg PO once Route: PO; jb4 20:06 Follow up: Response: Medication administered at discharge. jb4 Disposition Summary: 12/14/24 19:53 Discharge Ordered Notes: Location: Home kb Condition: Stable kb Diagnosis - Colitis kb Followup: kb - With: Emergency Department - When: As needed - Reason: Worsening of condition Followup: kb - With: Private Physician - When: 2 - 3 days - Reason: Recheck today's complaints, Continuance of care, Re-evaluation by your physician Discharge Instructions: - Discharge Summary Sheet kb - Colitis kb Forms: - Medication Reconciliation Form kb - Antibiotic Education kb - Prescription Opioid Use kb - Patient Portal Instructions kb - Leadership Thank You Letter kb Prescriptions: - Cipro 500 mg Oral Tablet - take 1 tablet ORAL route every 12 hours for 10 days; 20 tablet; Refills: 0, kb Product Selection Permitted - Flagyl 500 mg Oral Tablet - take 1 tablet ORAL route every 8 hours for 10 days; 30 tablet; Refills: 0, kb Product Selection Permitted Addendum: 12/17/2024 14:34 Co-signature as Attending Physician, Ridge Martines MD I agree with the assessment and c douglas plan of care. Signatures: Dispatcher [employer] Katie Mcdonald, SUPERVISOR SALVAGE-C SUPERVISOR SALVAGE-Ridge Cartwright MD MD cha Bryson, James RN RN jb4 SHANNON MARCELO RN RN dd2
[2024-12-14] MEDS ORDERED: CIPROFLOXACIN HCL 500 MG TAB ONE (19:59)
[2024-12-14 21:09] VITALS: TEMP 98.4
[2024-12-14 21:10] VITALS: BP 116/64; O2SAT 99
== END 2024-12-14 20:07 | disposition home or self-care (01) ==
LOC: ER 16:47
DX: K52.9 Noninfective gastroenteritis and colitis, unspecified (principal)
CPT/HCPCS: 85025; 36415; 83690; 80053; 74177; 99283; Q9967

== ENCOUNTER 2024-12-17 05:24 | Emergency (ER) | payer OTHER ==
--- OUTSIDE RECORDS SUMMARY | 2024-12-17 05:30 | XMS REPORT | Continuity of Care Document ---
Author Name Unknown Address [address] [facility] [address] [place] [address] [facility] [address] [facility] [address] [place] [address] Care Team Providers Care Manufacturing Machine Operator Name Role Phone Alicia Woodard Attending Clinician Unavailable Geovanna FORD Attending Clinician Unavailable Payers Payer Name Policy Type Policy Number Effective Date Expirati on Date Source [employer] Medicare Advantage 53 [id number] 00 2020 00:00:00 [facility] Problems Condition Name Condition Details Condition Category Status Onset Date Resolution Date Last Treatment Date Treating Clinician Comments Source [id number] Urinary incontinen ce in female Problem [facility] [id number] History of hepatitis B Problem [facility] [id number] Osteopenia of multiple sites Problem [facility] [id number] Rash and nonspecifi c skin eruption Problem [facility] [id number] Skin lesions Problem [facility] Abnormal mammogram Abnormal mammogram Problem [facility] [id number] Routine eye exam Problem [facility] [id number] Vitamin D deficiency Problem [facility] [id number] Hyperchole sterolemia Problem [facility] [id number] Pain in left shoulder Problem [facility] [id number] History of hysterecto my Problem [facility] [id number] Pain in right knee Problem [facility] Social History Social Habit Start Date Stop Date Quantity Comments Source History of Tobacco Use [facility] Sex Assigned At [facility] Smoking Status Start Date Stop Date Source Never Smoker [facility] Medications Ordered Medication Name Filled Medication Name Start Date Stop Date Current Medication? Ordering Clinician Indication Dosage Frequency Signature (SIG) Comments Components Source Atorvastati n Calcium 40 MG Atorvastati n Calcium 40 MG 01-08 00:00: 00 No 1{table t} QD Atorvastat in Calcium 40 MG Bupivicaine Delmont Bupivicaine Delmont 2019-05 00:00: 00 No 2.5mg [facility] Kenalog (Triamcinol one) Kenalog (Triamcinol one) 2019-05 00:00: 00 No 40mg [facility] Vitamin D 50 MCG (1999 UT) Vitamin D 50 MCG (2000 UT) No 1{table t} QD Vitamin D 50 MCG (2000 UT) Calcium Calcium No Calcium Biotin 5000 MCG Biotin 5000 MCG No 1{table t} QD Biotin 5000 MCG Centrum Adult 50+ MultiGummie s - Centrum Adult 50+ MultiGummie s - No Centrum Adult 50+ MultiGummi es - Immunizations Ordered Immunization Name Filled Immunization Name Date Status Comments Source Moderna COVID-19 Vaccine (Low Dose Booster) Moderna COVID-19 Vaccine (Low Dose Booster) 2021-02-25 09:40:00 Completed [facility] Moderna COVID-19 Vaccine (Low Dose Booster) Moderna COVID-19 Vaccine (Low Dose Booster) 2021-02-25 09:40:00 Completed [facility] Moderna COVID-19 Vaccine (Low Dose Booster) Moderna COVID-19 Vaccine (Low Dose Booster) 2021-02-25 09:40:00 Completed [facility] Moderna COVID-19 Vaccine (Low Dose Booster) Moderna COVID-19 Vaccine (Low Dose Booster) 2021-02-25 09:40:00 Completed [facility] Moderna COVID-19 Vaccine (Low Dose Booster) Moderna COVID-19 Vaccine (Low Dose Booster) 2021-02-25 09:40:00 Completed [facility] Pneumovax (PPSV23) Pneumovax (PPSV23) 2021-02-03 09:40:00 Completed [facility] Pneumovax (PPSV23) Pneumovax (PPSV23) 2021-02-03 09:40:00 Completed [facility] Pneumovax (PPSV23) Pneumovax (PPSV23) 2021-02-03 09:40:00 Completed [facility] Pneumovax (PPSV23) Pneumovax (PPSV23) 2021-02-03 09:40:00 Completed [facility] Pneumovax (PPSV23) Pneumovax (PPSV23) 2021-02-03 09:40:00 Completed [facility] FLUZONE HIGH DOSE OVER 65 FLUZONE HIGH DOSE OVER 65 2021-02-03 09:38:00 Completed [facility] FLUZONE HIGH DOSE OVER 65 FLUZONE HIGH DOSE OVER 65 2021-02-03 09:38:00 Completed [facility] FLUZONE HIGH DOSE OVER 65 FLUZONE HIGH DOSE OVER 65 2021-02-03 09:38:00 Completed [facility] FLUZONE HIGH DOSE OVER 65 FLUZONE HIGH DOSE OVER 65 2021-02-03 09:38:00 Completed [facility] FLUZONE HIGH DOSE OVER 65 FLUZONE HIGH DOSE OVER 65 2021-02-03 09:38:00 Completed [facility] Moderna COVID-19 Vaccine Moderna COVID-19 Vaccine 2020-06-14 09:39:00 Completed [facility] Moderna COVID-19 Vaccine Moderna COVID-19 Vaccine 2020-06-14 09:39:00 Completed [facility] Moderna COVID-19 Vaccine Moderna COVID-19 Vaccine 2020-06-14 09:39:00 Completed [facility] Moderna COVID-19 Vaccine Moderna COVID-19 Vaccine 2020-06-14 09:39:00 Completed [facility] Moderna COVID-19 Vaccine Moderna COVID-19 Vaccine 2020-06-14 09:39:00 Completed [facility] Moderna COVID-19 Vaccine Moderna COVID-19 Vaccine 2020-05-08 09:39:00 Completed [facility] Moderna COVID-19 Vaccine Moderna COVID-19 Vaccine 2020-05-08 09:39:00 Completed [facility] Moderna COVID-19 Vaccine Moderna COVID-19 Vaccine 2020-05-08 09:39:00 Completed [facility] Moderna COVID-19 Vaccine Moderna COVID-19 Vaccine 2020-05-08 09:39:00 Completed [facility] Moderna COVID-19 Vaccine Moderna COVID-19 Vaccine 2020-05-08 09:39:00 Completed [facility] Bupivicaine Delmont Bupivicaine Delmont 2020-03-15 16:04:00 Completed [facility] Kenalog (Triamcinolone) Kenalog (Triamcinolone) 2020-03-15 16:03:00 Completed [facility] Prevnar 13 (PCV13) Prevnar 13 (PCV13) 2020-02-18 11:13:00 Completed [facility] Prevnar 13 (PCV13) Prevnar 13 (PCV13) 2020-02-18 11:13:00 Completed [facility] Prevnar 13 (PCV13) Prevnar 13 (PCV13) 2020-02-18 11:13:00 Completed [facility] Prevnar 13 (PCV13) Prevnar 13 (PCV13) 2020-02-18 11:13:00 Completed [facility] Prevnar 13 (PCV13) Prevnar 13 (PCV13) 2020-02-18 11:13:00 Completed [facility] FluAD FluAD 2020-02-18 11:12:00 Completed [facility] FluAD FluAD 2020-02-18 11:12:00 Completed [facility] FluAD FluAD 2020-02-18 11:12:00 Completed [facility] FluAD FluAD 2020-02-18 11:12:00 Completed [facility] FluAD FluAD 2020-02-18 11:12:00 Completed [facility] Flucelvax - single dose syringe Flucelvax - single dose syringe 2019-03-09 08:21:00 Completed [facility] Flucelvax - single dose syringe Flucelvax - single dose syringe 2019-03-09 08:21:00 Completed [facility] Flucelvax - single dose syringe Flucelvax - single dose syringe 2019-03-09 08:21:00 Completed [facility] Flucelvax - single dose syringe Flucelvax - single dose syringe 2019-03-09 08:21:00 Completed [facility] Flucelvax - single dose syringe Flucelvax - single dose syringe 2019-03-09 08:21:00 Completed [facility] Flucelvax - single dose syringe Flucelvax - single dose syringe 2019-03-09 00:00:00 Completed [facility] Flucelvax - multidose vial Flucelvax - multidose vial 2018-03-03 10:25:00 Completed [facility] Flucelvax - multidose vial Flucelvax - multidose vial 2018-03-03 10:25:00 Completed [facility] Flucelvax - multidose vial Flucelvax - multidose vial 2018-03-03 10:25:00 Completed [facility] Flucelvax - multidose vial Flucelvax - multidose vial 2018-03-03 10:25:00 Completed [facility] Flucelvax - multidose vial Flucelvax - multidose vial 2018-03-03 10:25:00 Completed [facility] Adacel (Tdap) Adacel (Tdap) 2015-11-04 09:41:00 Completed [facility] Adacel (Tdap) Adacel (Tdap) 2015-11-04 09:41:00 Completed [facility] Adacel (Tdap) Adacel (Tdap) 2015-11-04 09:41:00 Completed [facility] Adacel (Tdap) Adacel (Tdap) 2015-11-04 09:41:00 Completed [facility] Adacel (Tdap) Adacel (Tdap) 2015-11-04 09:41:00 Completed [facility] Moderna COVID-19 Vaccine Moderna COVID-19 Vaccine Unknown Completed [facility] Flucelvax - multidose vial Flucelvax - multidose vial Unknown Completed [facility] FluAD FluAD Unknown Completed [facility] Flucelvax - single dose syringe Flucelvax - single dose syringe Unknown Completed [facility] Pneumovax (PPSV23) Pneumovax (PPSV23) Unknown Completed [facility] Moderna COVID-19 Vaccine (Low Dose Booster) Moderna COVID-19 Vaccine (Low Dose Booster) Unknown Completed [facility] FLUZONE HIGH DOSE OVER 65 FLUZONE HIGH DOSE OVER 65 Unknown Completed [facility] Adacel (Tdap) Adacel (Tdap) Unknown [facility] Prevnar 13 (PCV13) Prevnar 13 (PCV13) Unknown Completed [facility] Moderna COVID-19 Vaccine Moderna COVID-19 Vaccine Unknown Completed [facility] Flucelvax - multidose vial Flucelvax - multidose vial Unknown Completed [facility] FluAD FluAD Unknown Completed [facility] Flucelvax - single dose syringe Flucelvax - single dose syringe Unknown Completed [facility] Pneumovax (PPSV23) Pneumovax (PPSV23) Unknown Completed [facility] Moderna COVID-19 Vaccine (Low Dose Booster) Moderna COVID-19 Vaccine (Low Dose Booster) Unknown Completed [facility] FLUZONE HIGH DOSE OVER 65 FLUZONE HIGH DOSE OVER 65 Unknown Completed [facility] Adacel (Tdap) Adacel (Tdap) Unknown Completed [facility] Prevnar 13 (PCV13) Prevnar 13 (PCV13) Unknown Completed [facility] Moderna COVID-19 Vaccine Moderna COVID-19 Vaccine Unknown Completed [facility] Flucelvax - multidose vial Flucelvax - multidose vial Unknown Completed [facility] FluAD FluAD Unknown Completed [facility] Flucelvax - single dose syringe Flucelvax - single dose syringe Unknown Completed [facility] Pneumovax (PPSV23) Pneumovax (PPSV23) Unknown Completed [facility] Moderna COVID-19 Vaccine (Low Dose Booster) Moderna COVID-19 Vaccine (Low Dose Booster) Unknown Completed [facility] FLUZONE HIGH DOSE OVER 65 FLUZONE HIGH DOSE OVER 65 Unknown Completed [facility] Adacel (Tdap) Adacel (Tdap) Unknown Completed [facility] Prevnar 13 (PCV13) Prevnar 13 (PCV13) Unknown Completed [facility] Moderna COVID-19 Vaccine Moderna COVID-19 Vaccine Unknown Completed [facility] Flucelvax - multidose vial Flucelvax - multidose vial Unknown Completed [facility] FluAD FluAD Unknown Completed [facility] Flucelvax - single dose syringe Flucelvax - single dose syringe Unknown Completed [facility] Pneumovax (PPSV23) Pneumovax (PPSV23) Unknown [facility] Vacc[facility] (Low Dose Booster) Moderna COVID-19 Vaccine (Low Dose Booster) Unknown Completed [facility] FLUZONE HIGH DOSE OVER 65 FLUZONE HIGH DOSE OVER 65 Unknown Completed [facility] Adacel (Tdap) Adacel (Tdap) Unknown Completed [facility] Prevnar 13 (PCV13) Prevnar 13 (PCV13) Unknown Completed [facility] Moderna COVID-19 Vaccine Moderna COVID-19 Vaccine Unknown Completed [facility] Flucelvax (ccIIV4) - MDV - 0.5mL Flucelvax (ccIIV4) - MDV - 0.5mL Unknown Completed [facility] FluAD FluAD Unknown Completed [facility] Flucelvax (ccIIV4) - SDS - 0.5mL Flucelvax (ccIIV4) - SDS - 0.5mL Unknown Completed [facility] Pneumovax (PPSV23) Pneumovax (PPSV23) Unknown Completed [facility] Moderna COVID-19 Vaccine (Low Dose Booster) Moderna COVID-19 Vaccine (Low Dose Booster) Unknown Completed [facility] FLUZONE HIGH DOSE OVER 65 FLUZONE HIGH DOSE OVER 65 Unknown Completed [facility] Adacel (Tdap) Adacel (Tdap) Unknown Completed [facility] Prevnar 13 (PCV13) Prevnar 13 (PCV13) Unknown Completed [facility] Moderna COVID-19 Vaccine Moderna COVID-19 Vaccine Unknown Completed [facility] Flucelvax (ccIIV4) - MDV - 0.5mL Flucelvax (ccIIV4) - MDV - 0.5mL Unknown Completed [facility] FluAD FluAD Unknown Completed [facility] Flucelvax (ccIIV4) - SDS - 0.5mL Flucelvax (ccIIV4) - SDS - 0.5mL Unknown Completed [facility] Pneumovax (PPSV23) Pneumovax (PPSV23) Unknown Completed [facility] Moderna COVID-19 Vaccine (Low Dose Booster) Moderna COVID-19 Vaccine (Low Dose Booster) Unknown Completed [facility] FLUZONE HIGH DOSE OVER 65 FLUZONE HIGH DOSE OVER 65 Unknown Completed [facility] Adacel (Tdap) Adacel (Tdap) Unknown Completed [facility] Prevnar 13 (PCV13) Prevnar 13 (PCV13) Unknown Completed [facility] Moderna COVID-19 Vaccine Moderna COVID-19 Vaccine Unknown Completed [facility] Flucelvax (ccIIV4) - MDV - 0.5mL Flucelvax (ccIIV4) - MDV - 0.5mL Unknown Completed [facility] FluAD FluAD Unknown Completed [facility] Flucelvax (ccIIV4) - SDS - 0.5mL Flucelvax (ccIIV4) - SDS - 0.5mL Unknown Completed [facility] Pneumovax (PPSV23) Pneumovax (PPSV23) Unknown Completed [facility] Moderna COVID-19 Vaccine (Low Dose Booster) Moderna COVID-19 Vaccine (Low Dose Booster) Unknown Completed [facility] FLUZONE HIGH DOSE OVER 65 FLUZONE HIGH DOSE OVER 65 Unknown Completed [facility] Adacel (Tdap) Adacel (Tdap) Unknown Completed [facility] Prevnar 13 (PCV13) Prevnar 13 (PCV13) Unknown Completed [facility] Moderna COVID-19 Vaccine Moderna COVID-19 Vaccine Unknown Completed [facility] Flucelvax (ccIIV4) - MDV - 0.5mL Flucelvax (ccIIV4) - MDV - 0.5mL Unknown Completed [facility] FluAD FluAD Unknown Completed [facility] Flucelvax (ccIIV4) - SDS - 0.5mL Flucelvax (ccIIV4) - SDS - 0.5mL Unknown Completed [facility] Pneumovax (PPSV23) Pneumovax (PPSV23) Unknown Completed [facility] MODERNA COVID-19 VACCINE (LOW DOSE BOOSTER) MODERNA COVID-19 VACCINE (LOW DOSE BOOSTER) Unknown Completed [facility] FLUZONE HIGH DOSE OVER 65 FLUZONE HIGH DOSE OVER 65 Unknown Completed [facility] Adacel (Tdap) Adacel (Tdap) Unknown Completed [facility] Prevnar 13 (PCV13) Prevnar 13 (PCV13) Unknown Completed [facility] Moderna COVID-19 Vaccine Moderna COVID-19 Vaccine Unknown Completed [facility] Flucelvax (ccIIV4) - MDV - 0.5mL Flucelvax (ccIIV4) - MDV - 0.5mL Unknown Completed [facility] FluAD FluAD Unknown Completed [facility] Flucelvax (ccIIV4) - SDS - 0.5mL Flucelvax (ccIIV4) - SDS - 0.5mL Unknown Completed [facility] Pneumovax (PPSV23) Pneumovax (PPSV23) Unknown Completed [facility] MODERNA COVID-19 VACCINE (LOW DOSE BOOSTER) MODERNA COVID-19 VACCINE (LOW DOSE BOOSTER) Unknown Completed [facility] FLUZONE HIGH DOSE OVER 65 FLUZONE HIGH DOSE OVER 65 Unknown Completed [facility] Adacel (Tdap) Adacel (Tdap) Unknown Completed [facility] Prevnar 13 (PCV13) Prevnar 13 (PCV13) Unknown Completed [facility] Moderna COVID-19 Vaccine Moderna COVID-19 Vaccine Unknown Completed [facility] Flucelvax (ccIIV4) - MDV - 0.5mL Flucelvax (ccIIV4) - MDV - 0.5mL Unknown Completed [facility] FluAD FluAD Unknown Completed [facility] Flucelvax (ccIIV4) - SDS - 0.5mL Flucelvax (ccIIV4) - SDS - 0.5mL Unknown Completed [facility] Pneumovax (PPSV23) Pneumovax (PPSV23) Unknown Completed [facility] MODERNA COVID-19 VACCINE (LOW DOSE BOOSTER) MODERNA COVID-19 VACCINE (LOW DOSE BOOSTER) Unknown Completed [facility] FLUZONE HIGH DOSE OVER 65 FLUZONE HIGH DOSE OVER 65 Unknown Completed [facility] Adacel (Tdap) Adacel (Tdap) Unknown Completed [facility] Prevnar 13 (PCV13) Prevnar 13 (PCV13) Unknown Completed [facility] Moderna COVID-19 Vaccine Moderna COVID-19 Vaccine Unknown Completed [facility] Flucelvax (ccIIV4) - MDV - 0.5mL Flucelvax (ccIIV4) - MDV - 0.5mL Unknown Completed [facility] FluAD FluAD Unknown Completed [facility] Flucelvax (ccIIV4) - SDS - 0.5mL Flucelvax (ccIIV4) - SDS - 0.5mL Unknown Completed [facility] Pneumovax (PPSV23) Pneumovax (PPSV23) Unknown Completed [facility] MODERNA COVID-19 VACCINE (LOW DOSE BOOSTER) MODERNA COVID-19 VACCINE (LOW DOSE BOOSTER) Unknown Completed [facility] FLUZONE HIGH DOSE OVER 65 FLUZONE HIGH DOSE OVER 65 Unknown Completed [facility] Adacel (Tdap) Adacel (Tdap) Unknown Completed [facility] Prevnar 13 (PCV13) Prevnar 13 (PCV13) Unknown Completed [facility] Moderna COVID-19 Vaccine Moderna COVID-19 Vaccine Unknown Completed [facility] Flucelvax (ccIIV4) - MDV - 0.5mL Flucelvax (ccIIV4) - MDV - 0.5mL Unknown Completed [facility] FluAD FluAD Unknown Completed [facility] Flucelvax (ccIIV4) - SDS - 0.5mL Flucelvax (ccIIV4) - SDS - 0.5mL Unknown Completed [facility] Pneumovax (PPSV23) Pneumovax (PPSV23) Unknown Completed [facility] MODERNA COVID-19 VACCINE (LOW DOSE BOOSTER) MODERNA COVID-19 VACCINE (LOW DOSE BOOSTER) Unknown Completed [facility] FLUZONE HIGH DOSE OVER 65 FLUZONE HIGH DOSE OVER 65 Unknown Completed [facility] Adacel (Tdap) Adacel (Tdap) Unknown Completed [facility] Prevnar 13 (PCV13) Prevnar 13 (PCV13) Unknown Completed [facility] Moderna COVID-19 Vaccine Moderna COVID-19 Vaccine Unknown Completed [facility] Flucelvax (ccIIV4) - MDV - 0.5mL Flucelvax (ccIIV4) - MDV - 0.5mL Unknown Completed [facility] FluAD FluAD Unknown Completed [facility] Flucelvax (ccIIV4) - SDS - 0.5mL Flucelvax (ccIIV4) - SDS - 0.5mL Unknown Completed [facility] Pneumovax (PPSV23) Pneumovax (PPSV23) Unknown Completed [facility] MODERNA COVID-19 VACCINE (LOW DOSE BOOSTER) MODERNA COVID-19 VACCINE (LOW DOSE BOOSTER) Unknown Completed [facility] FLUZONE HIGH DOSE OVER 65 FLUZONE HIGH DOSE OVER 65 Unknown Completed [facility] Adacel (Tdap) Adacel (Tdap) Unknown Completed [facility] Prevnar 13 (PCV13) Prevnar 13 (PCV13) Unknown Completed [facility] Prevnar 20 (PCV20) Prevnar 20 (PCV20) Unknown Completed [facility] Shingrix Shingrix Unknown Completed [facility] Vital Signs Vital Name Observation Time Observation Value Comments Lexi kruger height 2024-07-10 15:40:00 65 [in_i] Commo n [facility] weight 2024-07-10 15:40:00 155 [lb_av] Comm on [facility] temperature 2024-07-10 15:40:00 97.3 [degF] Com [facility] bmi 2024-07-10 15:40:00 25.79 kg/m2 Comm on [facility] oximetry 2024-07-10 15:40:00 97 % Commo n [facility] respiratory rate 2024-07-10 15:40:00 16 /min [facility] blood pressure systolic 2024-07-10 15:40:00 117 mm[Hg] [facility] blood pressure diastolic 2024-07-10 15:40:00 61 mm[Hg] [facility] height 2024-07-10 15:40:00 65 [in_i] Commo n [facility] weight 2024-07-10 15:40:00 155 [lb_av] Comm on [facility] temperature 2024-07-10 15:40:00 97.3 [degF] Com [facility] bmi 2024-07-10 15:40:00 25.79 kg/m2 Comm on [facility] oximetry 2024-07-10 15:40:00 97 % Commo n [facility] respiratory rate 2024-07-10 15:40:00 16 /min [facility] blood pressure systolic 2024-07-10 15:40:00 117 mm[Hg] [facility] blood pressure diastolic 2024-07-10 15:40:00 61 mm[Hg] [facility] height 2024-01-09 11:00:00 65 [in_i] Commo n [facility] weight 2024-01-09 11:00:00 146 [lb_av] Comm on [facility] temperature 2024-01-09 11:00:00 97.3 [degF] Com [facility] bmi 2024-01-09 11:00:00 24.29 kg/m2 Comm on [facility] oximetry 2024-01-09 11:00:00 98 % Commo n [facility] respiratory rate 2024-01-09 11:00:00 16 /min [facility] blood pressure systolic 2024-01-09 11:00:00 128 mm[Hg] [facility] blood pressure diastolic 2024-01-09 11:00:00 70 mm[Hg] [facility] height 2024-01-09 11:00:00 65 [in_i] Commo n [facility] weight 2024-01-09 11:00:00 146 [lb_av] Comm on [facility] temperature 2024-01-09 11:00:00 97.3 [degF] Com [facility] bmi 2024-01-09 11:00:00 24.29 kg/m2 Comm on [facility] oximetry 2024-01-09 11:00:00 98 % Commo n [facility] respiratory rate 2024-01-09 11:00:00 16 /min Common [facility] blood pressure systolic 2024-01-09 11:00:00 128 mm[facility]Hg] [facility] diastolic 2024-01-09 11:00:00 70 mm[Hg] Common [facility] height 2023-10-09 13:40:00 65 [in_i] Commo n [facility] weight 2023-10-09 13:40:00 150 [lb_av] Comm on [facility] temperature 2023-10-09 13:40:00 97.4 [degF] Com mon [facility] bmi 2023-10-09 13:40:00 24.96 kg/m2 Comm on [facility] oximetry 2023-10-09 13:40:00 99 % Commo n [facility] respiratory rate 2023-10-09 13:40:00 16 /min Common [facility] blood pressure systolic 2023-10-09 13:40:00 124 mm[Hg] [facility] blood pressure diastolic 2023-10-09 13:40:00 76 mm[Hg] [facility] height 2023-07-08 11:40:00 65 [in_i] Commo n [facility] weight 2023-07-08 11:40:00 147 [lb_av] Comm on [facility] temperature 2023-07-08 11:40:00 97.6 [degF] Com [facility] bmi 2023-07-08 11:40:00 24.46 kg/m2 Comm on [facility] oximetry 2023-07-08 11:40:00 98 % Commo n [facility] respiratory rate 2023-07-08 11:40:00 16 /min Common [facility] blood pressure systolic 2023-07-08 11:40:00 128 mm[Hg] [facility] blood pressure diastolic 2023-07-08 11:40:00 72 mm[Hg] [facility] height 2023-07-03 11:00:00 65 [in_i] Commo n [facility] weight 2023-07-03 11:00:00 148 [lb_av] Comm on [facility] temperature 2023-07-03 11:00:00 97.4 [degF] Com [facility] bmi 2023-07-03 11:00:00 24.63 kg/m2 Comm on [facility] oximetry 2023-07-03 11:00:00 97 % Commo n [facility] respiratory rate 2023-07-03 11:00:00 16 /min [facility] blood pressure systolic 2023-07-03 11:00:00 124 mm[Hg] [facility] blood pressure diastolic 2023-07-03 11:00:00 59 mm[Hg] [facility] height 2023-07-03 11:00:00 65 [in_i] Commo n [facility] weight 2023-07-03 11:00:00 148 [lb_av] Comm on [facility] temperature 2023-07-03 11:00:00 97.4 [degF] Com mon [facility] bmi 2023-07-03 11:00:00 24.63 kg/m2 Comm on [facility] oximetry 2023-07-03 11:00:00 97 % Commo n [facility] respiratory rate 2023-07-03 11:00:00 16 /min [facility] blood pressure systolic 2023-07-03 11:00:00 124 mm[Hg] [facility] blood pressure diastolic 2023-07-03 11:00:00 59 mm[Hg] [facility] height 2022-10-04 14:00:00 65 [in_i] Commo n [facility] weight 2022-10-04 14:00:00 145 [lb_av] Comm on [facility] bmi 2022-10-04 14:00:00 24.13 kg/m2 Comm on [facility] height 2022-08-08 14:00:00 65 [in_i] Commo n [facility] weight 2022-08-08 14:00:00 144.6 [lb_av] Co mmon [facility] temperature 2022-08-08 14:00:00 97.4 [degF] Com mon [facility] bmi 2022-08-08 14:00:00 24.06 kg/m2 Comm on [facility] oximetry 2022-08-08 14:00:00 98 % Commo n [facility] respiratory rate 2022-08-08 14:00:00 16 /min Common [facility] blood pressure systolic 2022-08-08 14:00:00 128 mm[Hg] [facility] blood pressure diastolic 2022-08-08 14:00:00 72 mm[Hg] [facility] height 2022-08-08 14:20:00 65 [in_i] Commo n [facility] weight 2022-08-08 14:20:00 144.6 [lb_av] Co mmon [facility] temperature 2022-08-08 14:20:00 97.4 [degF] Com mon [facility] bmi 2022-08-08 14:20:00 24.06 kg/m2 Comm on [facility] oximetry 2022-08-08 14:20:00 98 % Commo n [facility] respiratory rate 2022-08-08 14:20:00 16 /min [facility] blood pressure systolic 2022-08-08 14:20:00 128 mm[Hg] [facility] blood pressure diastolic 2022-08-08 14:20:00 72 mm[Hg] [facility] height 2022-03-02 11:20:00 65 [in_i] Commo n [facility] weight 2022-03-02 11:20:00 139 [lb_av] Comm on [facility] temperature 2022-03-02 11:20:00 99.4 [degF] Com [facility] bmi 2022-03-02 11:20:00 23.13 kg/m2 Comm on [facility] height 2022-01-17 09:20:00 65 [in_i] Commo n [facility] weight 2022-01-17 09:20:00 144 [lb_av] Comm on [facility] bmi 2022-01-17 09:20:00 23.96 kg/m2 Comm on [facility] height 2022-01-02 13:40:00 65 [in_i] Commo n [facility] weight 2022-01-02 13:40:00 144.6 [lb_av] Co on [facility] temperature 2022-01-02 13:40:00 97.8 [degF] Com mon [facility] bmi 2022-01-02 13:40:00 24.06 kg/m2 Comm on [facility] oximetry 2022-01-02 13:40:00 100 % Commo n [facility] respiratory rate 2022-01-02 13:40:00 17 /min [facility] blood pressure systolic 2022-01-02 13:40:00 129 mm[Hg] Common [facility] blood pressure diastolic 2022-01-02 13:40:00 60 mm[Hg] [facility] oximetry 2021-04-03 08:00:00 96 % Commo n [facility] respiratory rate 2021-04-03 08:00:00 18 /min [facility] blood pressure systolic 2021-04-03 08:00:00 124 mm[Hg] [facility] blood pressure diastolic 2021-04-03 08:00:00 80 mm[Hg] Common [facility] height 2021-04-03 08:00:00 65 [in_i] Commo n [facility] weight 2021-04-03 08:00:00 148.6 [lb_av] Co on [facility] temperature 2021-04-03 08:00:00 97.0 [degF] Com mon [facility] bmi 2021-04-03 08:00:00 24.73 kg/m2 Comm on [facility] height 2021-03-08 08:00:00 65 [in_i] Commo n [facility] weight 2021-03-08 08:00:00 143 [lb_av] Comm on [facility] bmi 2021-03-08 08:00:00 23.79 kg/m2 Comm on [facility] Encounters Start Date/Time End Date/Time Encounter Type Admission Type Attending [facility] Care Department Encounter ID Source 2024-06-04 08:55:00 Outpatient Woodard, Alicia [facility]LMLC [facility] [id number] [facility] 2024-01-20 08:39:00 Outpatient Woodard Alicia STLMLC ST[facility] [id number] [facility] 2023-07-02 13:46:00 Outpatient Woodard, Alicia STLMLC ST[facility] [id number] [facility] 2023-07-01 09:48:00 Outpatient Woodard Alicia STLMLC ST[facility]C [id number] [facility] 2022-08-08 14:29:00 Outpatient Woodard, Alicia STLMLC ST[facility] [id number] [facility] 2022-08-01 15:51:00 Outpatient Woodard Alicia STLMLC STL[facility]C [id number] [facility] 2022-05-15 12:19:00 Outpatient FORD, Na STLMLC ST[facility]C [id number] [facility] 2022-04-06 09:17:00 Outpatient Ford, Na STLMLC ST[facility]C [id number] [facility] 2022-01-15 07:52:00 Outpatient Ford, Na STLMLC ST[facility]C [id number] [facility] 2022-01-02 13:06:00 Outpatient Ford, Na STLMLC ST[facility]MLC [id number] [facility] 2021-05-31 14:35:21 Outpatient Ford, Na STLMLC ST[facility]C [id number] [facility] 2021-05-31 14:08:11 Outpatient Ford, Na STLMLC ST[facility]C [id number] [facility] 2021-05-31 14:06:51 Outpatient Ford, Na STLMLC ST[facility]C [id number] [facility] 2021-05-31 12:38:54 Outpatient Ford, Na [facility]LMLC ST[facility]C [id number] [facility] 2021-05-31 12:36:44 Outpatient Ford, Na STLMLC ST[facility]C [id number] [facility] 2021-05-31 12:05:49 Outpatient Ford, Na [facility]LMLC ST[facility] [id number] [facility] 2021-05-31 12:03:57 Outpatient Ford, Na STLMLC ST[facility]C [id number] [facility] 2021-05-31 12:03:28 Outpatient Ford, Na STLMLC ST[facility]C [id number] [facility] 2021-05-31 11:58:47 Outpatient Ford, Na STLMLC ST[facility]C [id number] [facility] 2021-05-31 11:57:00 Outpatient Ford, Na STLMLC STL[facility]C [id number] [facility] 2021-05-31 11:55:30 Outpatient Ford, Na STLMLC ST[facility]C [id number] [facility] 2021-05-31 11:54:31 Outpatient Ford, Na STLMLC ST[facility]C [id number] [facility] 2021-05-31 11:52:41 Outpatient Ford, Na STLMLC ST[facility]C [id number] [facility] 2021-05-31 11:52:10 Outpatient Geovanna Ford STLMLC STLMLC [id number] [facility] 2024-07-14 00:00:00 2024-07-14 00:00:00 (TEL) STLMLC STLMLC [id number] [facility] 2024-07-10 00:00:00 2024-07-10 00:00:00 OFFICE VISIT ESTAB PT LEVEL 4 [facility]C STL[facility]C [id number] [facility] 2024-07-10 00:00:00 2024-07-10 00:00:00 SUB ANNUAL [facility]LL[facility] VISIT STLMLC STLMLC [id number] [facility] 2024-05-18 00:00:00 2024-05-18 00:00:00 (TEL) STLMLC STLMLC [id number] [facility] 2024-04-13 00:00:00 2024-04-13 00:00:00 (TEL) STLMLC STLMLC [id number] [facility] 2024-01-20 00:00:00 2024-01-20 00:00:00 (TEL) STLMLC STL[facility]C [id number] [facility] 2024-01-09 00:00:00 2024-01-09 00:00:00 OFFICE VISIT ESTAB PT LEVEL 4 [facility] ST[facility] [id number] [facility] 2023-10-09 00:00:00 2023-10-09 00:00:00 OFFICE VISIT ESTAB PT LEVEL 4 [facility] ST[facility]C [id number] [facility] 2023-07-08 00:00:00 2023-07-08 00:00:00 (TEL) STLMLC STLMLC [id number] [facility] 2023-07-08 00:00:00 2023-07-08 00:00:00 OFFICE VISIT ESTAB PT LEVEL 3 [facility]C STL[facility]C [id number] [facility] 2023-07-03 00:00:00 2023-07-03 00:00:00 OFFICE VISIT ESTAB PT LEVEL 4 [facility] ST[facility]C [id number] [facility] 2023-07-03 00:00:00 2023-07-03 00:00:00 SUB ANNUAL [facility] WELLNESS VISIT STLMLC STLMLC [id number] [facility] 2023-06-25 00:00:00 2023-06-25 00:00:00 (TEL) STLMLC STLMLC [id number] [facility] 2023-04-19 00:00:00 2023-04-19 00:00:00 (TEL) STLMLC STL[facility]C [id number] [facility] 2023-01-08 00:00:00 2023-01-08 00:00:00 OFFICE VISIT ESTAB PT LEVEL 4 [facility] ST[facility]C [id number] [facility] 2023-01-03 00:00:00 2023-01-03 00:00:00 (TEL) STLMLC STLMLC [id number] [facility] 2022-10-04 00:00:00 2022-10-04 00:00:00 OFFICE VISIT ESTAB PT LEVEL 4 [facility]C ST[facility]C [id number] [facility] 2022-08-08 00:00:00 2022-08-08 00:00:00 OFFICE VISIT ESTAB PT LEVEL 4 [facility] STL[facility]C [id number] [facility] 2022-08-08 00:00:00 2022-08-08 00:00:00 SUB ANNUAL [facility] WELLNESS VISIT STLMLC STLMLC [id number] [facility] 2022-08-01 00:00:00 2022-08-01 00:00:00 (TEL) STLMLC STLMLC [id number] [facility] 2022-04-17 00:00:00 2022-04-17 00:00:00 (TEL) STLMLC STLMLC [id number] [facility] 2022-03-02 00:00:00 2022-03-02 00:00:00 (TEL) STLMLC STLMLC [id number] [facility] 2022-03-02 00:00:00 2022-03-02 00:00:00 OFFICE VISIT EST PT LEVEL 3 [facility]C STL[facility]C [id number] [facility] 2022-01-17 00:00:00 2022-01-17 00:00:00 OFFICE VISIT EST PT LEVEL 3 [facility] STL[facility]C [id number] [facility] 2022-01-02 00:00:00 2022-01-02 00:00:00 OFFICE VISIT EST PT LEVEL 3 [facility] STL[facility]C [id number] [facility] 2021-09-27 00:00:00 2021-09-27 00:00:00 (TEL) STLMLC STLMLC [id number] [facility] 2021-09-27 00:00:00 2021-09-27 00:00:00 OFFICE VISIT EST PT LEVEL 3 [facility] STL[facility]C [id number] [facility] 2021-04-03 00:00:00 2021-04-03 00:00:00 (MCR WELL) Medicare Wellness STLMLC STLMLC [id number] [facility] 2021-03-08 00:00:00 2021-03-08 00:00:00 OFFICE VISIT EST PT LEVEL 3 [facility] ST[facility]C [id number] [facility] 2021-03-02 00:00:00 2021-03-02 00:00:00 (TEL) STLMLC STLMLC [id number] [facility] 2021-01-12 00:00:00 2021-01-12 00:00:00 Outpatient [facility]C ST[facility]C [id number] [facility] 2021-01-12 00:00:00 2021-01-12 00:00:00 NON-BILLAB LE VISIT STLMLC STLMLC [id number] [facility] 2021-01-05 00:00:00 2021-01-05 00:00:00 Outpatient [facility] [id number] [facility] 2021-01-05 00:00:00 2021-01-05 00:00:00 Outpatient ST[facility]MLC STLMLC [id number] [facility] 2020-07-15 00:00:00 2020-07-15 00:00:00 Outpatient ST[facility]MLC STLMLC [id number] [facility] 2020-03-24 00:00:00 2020-03-24 00:00:00 Outpatient [facility]C ST[facility]C [id number] [facility] 2020-03-24 00:00:00 2020-03-24 00:00:00 Outpatient [facility]C STLMLC [id number] [facility] 2020-03-15 00:00:00 2020-03-15 00:00:00 Outpatient [facility]C ST[facility]C [id number] [facility] 2020-03-07 00:00:00 2020-03-07 00:00:00 Outpatient [facility]C STLMLC [id number] [facility] 2020-02-26 00:00:00 2020-02-26 00:00:00 Outpatient [facility]C ST[facility] [id number] [facility] 2020-02-18 00:00:00 2020-02-18 00:00:00 Outpatient [facility]C [id number] [facility] 2019-03-09 08:00:00 2019-03-09 08:00:00 Outpatient [facility] [id number] [facility] 2019-02-09 14:41:00 2019-02-09 14:41:00 Outpatient [facility] [id number] [facility] 2018-08-05 14:37:00 2018-08-05 14:37:00 Outpatient [facility] [id number] [facility] 2018-06-10 20:21:00 2018-06-10 20:21:00 Outpatient [facility] [id number] [facility] 2018-06-10 11:15:00 2018-06-10 11:15:00 Outpatient [facility] [id number] [facility] 2018-06-04 20:49:00 2018-06-04 20:49:00 Outpatient [facility] [id number] [facility] 2018-06-04 10:15:00 2018-06-04 10:15:00 Outpatient [facility] [id number] [facility] Results Test Description Test Time Test Comments Results Result Co mments Source COMPREHENSIVE METABOLIC [id number] 00:00:00* Test Item Value Reference Range Interpretation Comme nts NUCLEATED RBCS (test code = 29249-1) 0.0 /100 WBC'S See_Comment [Automated message] The system which generated this result transmitted reference range: 0.0 /100 WBC'S. The reference range was not used to interpret this result as normal/abnormal. ABSOLUTE EOSINOPHILS (test code = 96330-6) 0.10 K/UL See_Comment [Automated message] The system which generated this result transmitted reference range: 0.00-0.50 K/UL. The reference range was not used to interpret this result as normal/abnormal. ABSOLUTE LYMPHOCYTES (test code = 00104-0) 1.13 K/UL See_Comment [Automated message] The system which generated this result transmitted reference range: 1.00-4.00 K/UL. The reference range was not used to interpret this result as normal/abnormal. ABSOLUTE MONOCYTES (test code = 32338-5) 0.25 K/UL See_Comment [Automated message] The system which generated this result transmitted reference range: 0.20-1.00 K/UL. The reference range was not used to interpret this result as normal/abnormal. ABSOLUTE NEUTROPHILS (test code = 21126-1) 2.77 K/UL See_Comment [Automated message] The system which generated this result transmitted reference range: 1.50-7.50 K/UL. The reference range was not used to interpret this result as normal/abnormal. BASOPHILS (test code = 93963-2) 0.7 % EOSINOPHILS (test code = 43505-0) 2.3 % HEMATOCRIT (test code = 60766-8) 38.7 % See_Comment [Automated messa ge] The [...] result as normal/abnormal. LYMPHOCYTES (test code = 61693-4) 26.3 % MCH (test code = 98567-1) 28.5 PG See_Comment [Automated messa ge] The system which generated this result transmitted reference range: 25.0-33.0 PG. The reference range was not used to interpret this result as normal/abnormal. MCHC (test code = 48982-2) 32.3 G/DL See_Comment [Automated messa ge] The system which generated this result transmitted reference range: 31.0-36.0 G/DL. The reference range was not used to interpret this result as normal/abnormal. MCV (test code = 04619-6) 88.2 fL See_Comment [Automated messa ge] The system which generated this result transmitted reference range: 80.0-99.0 fL. The reference range was not used to interpret this result as normal/abnormal. MONOCYTES (test code = 78886-5) 5.8 % NEUTROPHILS (test code = 89898-4) 64.7 % PLATELET COUNT (test code = 94935-5) 193 K/UL See_Comment [Automated messa ge] The system which generated this result transmitted reference range: 130-400 K/UL. The reference range was not used to interpret this result as normal/abnormal. RBC (test code = 06923-8) 4.39 M/UL See_Comment [Automated messa ge] The system which generated this result transmitted reference range: 3.80-5.40 M/UL. The reference range was not used to interpret this result as normal/abnormal. RDW (test code = 15555-7) 12.7 % See_Comment [Automated messa ge] The system which generated this result transmitted reference range: 11.5-15.0 %. The reference range was not used to interpret this result as normal/abnormal. WBC (test code = 88491-2) 4.3 K/UL See_Comment [Automated messa ge] The [...] normal/abnormal. CALC LDL CHOL (test code = 69573-7) 148 MG/DL See_Comment H [Automated messa ge] [...] normal/abnormal. RISK RATIO LDL/HDL (test code = 91156-1) 2.08 RATIO See_Comment [Automated message] The system [...] result as normal/abnormal. CALCIUM (test code = 83864-9) 10.1 MG/DL See_Comment [Automated messa ge] The [...] as normal/abnormal. CALC GLOBULIN (test code = 08354-3) 2.2 G/DL See_Comment [Automated messa ge] The [...] normal/abnormal. eGFR (2020 CKD-EPI) (test code = 41603-2) 71 ML/MIN/1.73 See_Comment [Automated message] The system [...] interpret this result as normal/abnormal. CBC W/AUTO [id number] 00:00:00* Test Item Value Reference Range Interpretation Comme nts NUCLEATED RBCS (test code = 90488-0) 0.0 /100 WBC'S See_Comment [Automated messa ge] The system which generated this result transmitted reference range: 0.0 /100 WBC'S. The reference range was not used to interpret this result as normal/abnormal. ABSOLUTE EOSINOPHILS (test code = 77177-9) 0.10 K/UL See_Comment [Automated messa ge] The system which generated this result transmitted reference range: 0.00-0.50 K/UL. The reference range was not used to interpret this result as normal/abnormal. ABSOLUTE LYMPHOCYTES (test code = 69299-1) 1.36 K/UL See_Comment [Automated messa ge] The system which generated this result transmitted reference range: 1.00-4.00 K/UL. The reference range was not used to interpret this result as normal/abnormal. ABSOLUTE MONOCYTES (test code = 21495-6) 0.29 K/UL See_Comment [Automated messa ge] The system which generated this result transmitted reference range: 0.20-1.00 K/UL. The reference range was not used to interpret this result as normal/abnormal. ABSOLUTE NEUTROPHILS (test code = 87070-0) 2.08 K/UL See_Comment [Automated messa ge] The system which generated this result transmitted reference range: 1.50-7.50 K/UL. The reference range was not used to interpret this result as normal/abnormal. BASOPHILS (test code = 91433-2) 1.0 % EOSINOPHILS (test code = 11191-8) 2.6 % HEMATOCRIT (test code = 66280-2) 37.2 % See_Comment [Automated messa ge] The [...] result as normal/abnormal. LYMPHOCYTES (test code = 46044-1) 35.1 % MCH (test code = 75231-4) 28.3 PG See_Comment [Automated messa ge] The system which generated this result transmitted reference range: 25.0-33.0 PG. The reference range was not used to interpret this result as normal/abnormal. MCHC (test code = 51855-7) 32.5 G/DL See_Comment [Automated messa ge] The system which generated this result transmitted reference range: 31.0-36.0 G/DL. The reference range was not used to interpret this result as normal/abnormal. MCV (test code = 88536-5) 87.1 fL See_Comment [Automated messa ge] The system which generated this result transmitted reference range: 80.0-99.0 fL. The reference range was not used to interpret this result as normal/abnormal. MONOCYTES (test code = 27103-4) 7.5 % NEUTROPHILS (test code = 25126-0) 53.8 % PLATELET COUNT (test code = 78928-2) 192 K/UL See_Comment [Automated messa ge] The system which generated this result transmitted reference range: 130-400 K/UL. The reference range was not used to interpret this result as normal/abnormal. RBC (test code = 26095-8) 4.27 M/UL See_Comment [Automated messa ge] The system which generated this result transmitted reference range: 3.80-5.40 M/UL. The reference range was not used to interpret this result as normal/abnormal. RDW (test code = 22346-6) 12.9 % See_Comment [Automated messa ge] The system which generated this result transmitted reference range: 11.5-15.0 %. The reference range was not used to interpret this result as normal/abnormal. WBC (test code = 64612-1) 3.9 K/UL See_Comment [Automated messa ge] The system which generated this result transmitted reference range: 3.5-11.0 K/UL. The reference range was not used to interpret this result as normal/abnormal. CBC W/AUTO [id number] 00:00:00* Test Item Value Reference Range Interpretation Comme nts NUCLEATED RBCS (test code = 22615-9) 0.0 /100 WBC'S See_Comment [Automated messa ge] The system which generated this result transmitted reference range: 0.0 /100 WBC'S. The reference range was not used to interpret this result as normal/abnormal. ABSOLUTE EOSINOPHILS (test code = 15962-4) 0.11 K/UL See_Comment [Automated messa ge] The system which generated this result transmitted reference range: 0.00-0.50 K/UL. The reference range was not used to interpret this result as normal/abnormal. ABSOLUTE LYMPHOCYTES (test code = 27224-9) 1.26 K/UL See_Comment [Automated messa ge] The system which generated this result transmitted reference range: 1.00-4.00 K/UL. The reference range was not used to interpret this result as normal/abnormal. ABSOLUTE MONOCYTES (test code = 91277-1) 0.36 K/UL See_Comment [Automated messa ge] The system which generated this result transmitted reference range: 0.20-1.00 K/UL. The reference range was not used to interpret this result as normal/abnormal. ABSOLUTE NEUTROPHILS (test code = 52697-5) 2.13 K/UL See_Comment [Automated messa ge] The system which generated this result transmitted reference range: 1.50-7.50 K/UL. The reference range was not used to interpret this result as normal/abnormal. BASOPHILS (test code = 15023-4) 0.8 % EOSINOPHILS (test code = 64632-1) 2.8 % HEMATOCRIT (test code = 30567-4) 36.4 % See_Comment [Automated messa ge] The [...] result as normal/abnormal. LYMPHOCYTES (test code = 34659-6) 32.3 % MCH (test code = 35241-6) 29.3 PG See_Comment [Automated messa ge] The system which generated this result transmitted reference range: 25.0-33.0 PG. The reference range was not used to interpret this result as normal/abnormal. MCHC (test code = 49628-5) 33.5 G/DL See_Comment [Automated messa ge] The system which generated this result transmitted reference range: 31.0-36.0 G/DL. The reference range was not used to interpret this result as normal/abnormal. MCV (test code = 03558-7) 87.3 fL See_Comment [Automated messa ge] The system which generated this result transmitted reference range: 80.0-99.0 fL. The reference range was not used to interpret this result as normal/abnormal. MONOCYTES (test code = 65095-9) 9.2 % NEUTROPHILS (test code = 90323-5) 54.6 % PLATELET COUNT (test code = 32648-9) 178 K/UL See_Comment [Automated messa ge] The system which generated this result transmitted reference range: 130-400 K/UL. The reference range was not used to interpret this result as normal/abnormal. RBC (test code = 41761-6) 4.17 M/UL See_Comment [Automated messa ge] The system which generated this result transmitted reference range: 3.80-5.40 M/UL. The reference range was not used to interpret this result as normal/abnormal. RDW (test code = 29963-9) 13.0 % See_Comment [Automated messa ge] The system which generated this result transmitted reference range: 11.5-15.0 %. The reference range was not used to interpret this result as normal/abnormal. WBC (test code = 48312-4) 3.9 K/UL See_Comment [Automated messa ge] The system which generated this result transmitted reference range: 3.5-11.0 K/UL. The reference range was not used to interpret this result as normal/abnormal. Comp. Metabolic Panel (14) ([facility])2021-09-14 00:00:00* Test Item Value Reference Range Interpretation [...] result as normal/abnormal. Calcium (test code = 62847-6) 9.4 mg/dL See_Comment [Automated messa ge] The [...] as normal/abnormal. Globulin, Total (test code = 50437-9) 2.1 g/dL See_Comment [Automated messa ge] The [...]
[2024-12-17 06:46] LABS: Absolute Lymphocytes (CBC) 1.0 K/uL (0.7-4.9); Hematocrit 38.4 % (36.0-45.0); Hemoglobin 12.9 g/dL (12.0-15.0); MCH 28.3 pg (27.0-35.0); MCHC 33.6 g/dL (32.0-36.0); MCV 84.3 fL (80-100); MPV 9.4 fL (7.6-11.3); Nucleated RBC Absolute Count 0.0 (0-0); Nucleated Red Blood Cells % 0.0 % (0-0); RBC Red Blood Cell Count 4.56 M/uL (3.86-4.86); White Blood Count 4.90 thou/uL (4.3-10.9)
[2024-12-17] MEDS ORDERED: FAMOTIDINE 20 MG/2 ML VIAL IV ONE (06:51)
[2024-12-17] MEDS ORDERED: ONDANSETRON 4 MG/2 ML VIAL ONE (06:51)
[2024-12-17] MEDS ORDERED: NA CHLORIDE 0.9% 1,000 ML ONE (06:52)
[2024-12-17 07:05] LABS: ALT/SGPT 34.0 U/L (13-56); AST/SGOT 25.0 U/L (15-37); Albumin 3.8 g/dL (3.4-5.0); Albumin/Globulin Ratio 1.2 (1.1-1.8); Alkaline Phosphatase 68.0 U/L (45-117); Anion Gap 7.9 mEq/L (5.0-15.0); BUN Blood Urea Nitrogen 11.0 mg/dL (7-18); Globulin 3.3 g/dL (2.3-3.5); Glucose Level 113.0 mg/dL (74-106); Lipase 24.0 U/L (13-75); Potassium 3.9 mEq/L (3.5-5.1)
--- NOTE | 2024-12-17 07:45 | RAD REPORT ---
EXAMINATION: CT ABDOMEN AND PELVIS WITH CONTRAST CLINICAL INDICATION: Abdominal pain TECHNIQUE: CT abdomen and pelvis was performed, after the administration of 100 cc Isovue-300.. Sagit mu and coronal reconstructions were obtained. One or more of the following dose reduction techniques were used: Automated exposure control, adjustment of the mA and kV according to patient si ze, and iterative reconstruction. Unless otherwise specified, incidental findings do not require dedicated imaging follow-up. [id number]. Oral contrast was not given which limits evaluation of bowel and appendix. COMPARISON: .December 14, 2024 FINDINGS: Liver, spleen, pancreas, adrenals and left kidney appear unremarkable. 2.2 cm right renal cyst. Mild prominent of bilateral extrarenal pelves. Mild wall thickening distal sigmoid colon. No stranding in the adjacent fat. Normal appendix. Small umbilical hernia : IMPRESSION: Mild thickening wall of the distal sigmoid colon may be secondary to incomplete distention or a mild colitis
--- NOTE | 2024-12-17 08:03 | ER ---
Nurse's Notes [facility] Name: Stacey Mari Age: 69 yrs Sex: Female : 1955 Arrival Date: 12/17/2024 Time: 05:24 Bed 8 Private MD: Diagnosis: Nausea;Anorexia;Left sided colitis Presentation: 12/17 05:36 Chief complaint: Patient states: c/o generalized abdominal pain, patient currently on al5 antibiotics for diverticulitis and the antibiotics are making her more dizzy. 05:36 Coronavirus screen: At this time, the client does not indicate any symptoms associated al5 with coronavirus-19. Ebola Screen: No symptoms or risks identified at this time. Initial Sepsis Screen: Does the patient meet any 2 criteria? No. Patient's initial sepsis screen is negative. Risk Assessment: Do you want to hurt yourself or someone else? Patient reports no desire to harm self or others. Onset of symptoms was December 17, 2024. 05:36 Method Of Arrival: Ambulatory al5 05:36 Acuity: CORTEZ 3 al5 08:36 Initial Sepsis Screen: Does the patient have a suspected source of infection? No. ph Patient's initial sepsis screen is negative. Triage Assessment: 05:36 General: Appears in no apparent distress. uncomfortable, Behavior is calm, cooperative. al5 Pain: Complains of pain in abdomen. EENT: No signs and/or symptoms were reported regarding the EENT system. Neuro: Level of Consciousness is awake, alert, obeys commands, Oriented to person, place, time, situation. Cardiovascular: Capillary refill < 3 seconds Patient's skin is warm and dry. Respiratory: Airway is patent Respiratory effort is even, unlabored, Respiratory pattern is regular, symmetrical. GI: Abdomen is non-distended, Reports lower abdominal pain, upper abdominal pain, epigastric pain. : No signs and/or symptoms were reported regarding the genitourinary system. Derm: Skin is intact, is healthy with good turgor, Skin is pink, warm \T\ dry. normal. Musculoskeletal: Circulation, motion, and sensation intact. Range of motion: intact in all extremities. Historical: - Allergies: 05:36 No Known Allergies; al5 - PMHx: 05:36 Hypercholesterolemia; al5 - PSHx: 05:36 Total abdominal hysterectomy; al5 - Immunization history:: Adult Immunizations up to date. - Infectious Disease History:: Denies. - Social history:: Smoking status: Patient denies any tobacco usage or history of. - Family history:: not pertinent. - Hospitalizations: : No recent hospitalization is reported. Screenin:31 [facility] ED Fall Risk Assessment (Adult) History of falling in the last 3 months, al5 including since admission No falls in past 3 months (0 pts) Confusion or Disorientation No (0 pts) Intoxicated or Sedated No (0 pts) Impaired Gait No (0 pts) Mobility Assist Device Used No (0 pt) Altered Elimination No (0 pt) Score/Fall Risk Level 0 - 2 = Low Risk Oriented to surroundings, Maintained a safe environment, Hourly rounding (assess needs \T\ fall precautionary measures) done. Abuse screen: Denies threats or abuse. Denies injuries from another. Nutritional screening: No deficits noted. Tuberculosis screening: No symptoms or risk factors identified. Assessment: 05:37 Reassessment: see triage assessment. al5 06:59 Reassessment: Patient appears in no apparent distress at this time. No changes from al5 previously documented assessment. Patient and/or family updated on plan of care and expected duration. Pain level reassessed. Patient is alert, oriented x 3, equal unlabored respirations, skin warm/dry/pink. Vital Signs: 05:36 BP 138 / 68; Pulse 66; Resp 18; Temp 98.2; Pulse Ox 98% on R/A; al5 05:36 Weight 68.04 kg; Height 5 ft. 6 in. ; al5 06:00 BP 123 / 62; Pulse 66; Resp 18; Pulse Ox 100% on R/A; al5 06:39 BP 121 / 76; Pulse 62; Resp 16; Pulse Ox 100% on R/A; al5 08:00 BP 132 / 72; Pulse 64; Resp 18; Temp 98; Pulse Ox 99% on R/A; ph 05:36 Body Mass Index 24.21 (68.04 kg, 167.64 cm) al5 ED Course: 05:28 Patient arrived in ED. [email or web address] 05:33 Oscar Zepdea MD is Attending Physician. rn 05:36 Arm band placed on right wrist. Patient placed in the treatment room, in view of staff al5 members, on pulse oximetry. 06:29 Triage completed. al5 06:32 Patient has correct armband on for positive identification. Bed in low position. Call al5 light in reach. Side rails up X 1. Provided Education on: plan of care. 06:32 No provider procedures requiring assistance completed. al5 06:41 Jaylene Cheng, YUDY is Primary Nurse. al5 06:42 Inserted saline lock: 20 gauge in right antecubital area, using aseptic technique. al5 Blood collected. Flushed with 10 mL NS. 07:23 CT Abd/Pelvis - IV Contrast Only In Process Unspecified. EDMS 07:25 Attending Physician role handed off by Oscar Zepeda MD ms3 07:25 Fam Carrasco DO is Attending Physician. ms3 08:37 IV discontinued, intact, bleeding controlled, No redness/swelling at site. Pressure ph dressing applied. Administered Medications: 07:01 Drug: Famotidine IVP 20 mg IVP once; dilute with 10 mL 0.9% NaCl; give over 2 minutes al5 Route: IVP; Site: right antecubital; 07:01 Drug: Ondansetron IVP 4 mg IVP once; over 2 minutes Route: IVP; Site: right antecubital;al5 07:01 Drug: NS 0.9% IV 1000 ml IV at 1 bolus Per protocol; to be given as a bolus over 60 al5 minutes Route: IV; Rate: 1 bolus; Site: right antecubital; Medication: 06:32 VIS not applicable for this client. al5 Outcome: 08:02 Discharge ordered by . ms3 08:37 Discharged to home ambulatory, with significant other, ph 08:37 Condition: good 08:37 Discharge instructions given to patient, significant other, Instructed on discharge instructions, follow up and referral plans. medication usage, Demonstrated understanding of instructions, follow-up care, medications, Prescriptions given X 1, 08:37 Patient left the ED. ph Signatures: Dispatcher [employer] EDMS Oscar Zepeda MD MD rn Hall, Patricia, RN RN Fam Carrasco DO DO ms3 Brittney Hoyt jj6 Jaylene Cheng RN RN al5
--- NOTE | 2024-12-17 08:03 | EDPHYS ---
Physician Documentation [facility] Name: Stacey Mari Age: 69 yrs Sex: Female : 1955 Arrival Date: 12/17/2024 Time: 05:24 Bed 8 Private MD: ED Physician Fam Carrasco HPI: 12/17 06:39 This 69 yrs old Female presents to ER via Ambulatory with complaints of Epigastric rn Pain, Abdominal Pain, Dizziness, Nausea. 06:39 Patient reports recently seen and diagnosed with colitis. Taking Cipro and Flagyl. She rn reports overall feels better, diarrhea has stopped and is now having normal bowel movements. Reports now is feeling epigastric abdominal pain with nausea and decreased appetite. She is attributing these new symptoms to the antibiotics as a possible side effect. No fever or chills. No losing blood in stool.. Historical: - Allergies: 05:36 No Known Allergies; al5 - PMHx: 05:36 Hypercholesterolemia; al5 - PSHx: 05:36 Total abdominal hysterectomy; al5 - Immunization history:: Adult Immunizations up to date. - Infectious Disease History:: Denies. - Social history:: Smoking status: Patient denies any tobacco usage or history of. - Family history:: not pertinent. - Hospitalizations: : No recent hospitalization is reported. ROS: 06:39 Constitutional: Negative for fever, chills, and weight loss, Cardiovascular: Negative rn for chest pain, palpitations, and edema, Respiratory: Negative for shortness of breath, cough, wheezing, and pleuritic chest pain, Abdomen/GI: Positive for abdominal pain with nausea MS/Extremity: Negative for injury and deformity, Skin: Negative for injury, rash, and discoloration, Neuro: Positive for generalized weakness Exam: 06:39 Constitutional: This is a well developed, well nourished patient who is awake, alert, rn and in no acute distress. ENT: Dry mucous membranes Cardiovascular: Regular rate and rhythm. No pulse deficits. Respiratory: No increased work of breathing, no retractions or nasal flaring. Abdomen/GI: Soft, non-tender Vital Signs: 05:36 BP 138 / 68; Pulse 66; Resp 18; Temp 98.2; Pulse Ox 98% on R/A; al5 05:36 Weight 68.04 kg; Height 5 ft. 6 in. ; al5 06:00 BP 123 / 62; Pulse 66; Resp 18; Pulse Ox 100% on R/A; al5 06:39 BP 121 / 76; Pulse 62; Resp 16; Pulse Ox 100% on R/A; al5 08:00 BP 132 / 72; Pulse 64; Resp 18; Temp 98; Pulse Ox 99% on R/A; ph 05:36 Body Mass Index 24.21 (68.04 kg, 167.64 cm) al5 MDM: 05:34 Medical Screening Exam initiated rn 07:25 Transition of care: Care assumed from Oscar Zepeda MD. ms3 07:41 ED course: Patient care and report received at [address] Zepeda. Patient is a ms3 69-year-old female recently treated for colitis with Cipro and Flagyl. Patient's presenting with decreased appetite and indigestion. Symptoms possibly secondary to antibiotics. Patient currently pending CT. If CT negative plan will be to discharge with Zofran.. 08:03 Differential diagnosis: Colitis vs Medication reaction vs Gastritis vs Dehydration. ms3 Data reviewed: vital signs, nurses notes, lab test result(s), radiologic studies, and as a result, I will discharge patient. I considered the following discharge prescriptions or medication management in the emergency department Medications were administered in the Emergency Department. See MAR. Counseling: I had a detailed discussion with the patient and/or guardian regarding the historical points, exam findings, and any diagnostic results supporting the discharge/admit diagnosis, lab results, radiology results, the need for outpatient follow up, to return to the emergency department if symptoms worsen or persist or if there are any questions or concerns that arise at home. Special discussion: Based on the patient's Hx, exam, and Dx evaluation, there is no indication for emergent surgery or inpatient Tx. It is understood by the patient/guardian that if the Sx's persist or worsen they need to return immediately for re-evaluation. ED course: Discussed labs, CT scan findings with patient and her . Patient given prescription for Phenergan tablets as patient has had nausea preventing her wanting to eat or drink. Discussed continuing current medications until complete with patient and her . Patient to follow-up with her primary care physician in 2 to 3 days. Patient and her understand and agree with plan. All questions were answered. Return precautions discussed to include worsening symptoms, fevers, inability to tolerate p.o., or any other concerns. On reevaluation patient is alert, no apparent distress, nontoxic-appearing, speaking full sentences. 12/17 06:00 Order name: CBC with Diff; Complete Time: 06:48 rn 12/17 06:00 Order name: CMP; Complete Time: 07:25 rn 12/17 06:00 Order name: Lipase; Complete Time: 07:25 rn 12/17 06:00 Order name: CT Abd/Pelvis - IV Contrast Only; Complete Time: 07:54 rn 12/17 06:00 Order name: IV Saline Lock; Complete Time: 06:41 rn 12/17 06:00 Order name: Labs collected and sent; Complete Time: 06:41 rn Administered Medications: 07:01 Drug: Famotidine IVP 20 mg IVP once; dilute with 10 mL 0.9% NaCl; give over 2 minutes al5 Route: IVP; Site: right antecubital; 07:01 Drug: Ondansetron IVP 4 mg IVP once; over 2 minutes Route: IVP; Site: right antecubital;al5 07:01 Drug: NS 0.9% IV 1000 ml IV at 1 bolus Per protocol; to be given as a bolus over 60 al5 minutes Route: IV; Rate: 1 bolus; Site: right antecubital; Disposition Summary: 12/17/24 08:02 Discharge Ordered Notes: Location: Home ms3 Condition: Stable ms3 Diagnosis - Nausea ms3 - Anorexia ms3 - Left sided colitis ms3 Followup: ms3 - With: Private Physician - When: 2 - 3 days - Reason: Recheck today's complaints Discharge Instructions: - Discharge Summary Sheet ms3 - Nausea, Adult ms3 Forms: - Medication Reconciliation Form ms3 - Antibiotic Education ms3 - Prescription Opioid Use ms3 - Patient Portal Instructions ms3 - Leadership Thank You Letter ms3 Prescriptions: - promethazine 25 mg Oral Tablet - take 1 tablet ORAL route every 6 hours As needed; 20 tablet; Refills: 0, ms3 Product Selection Permitted Signatures: Dispatcher [employer] EDOscar Long MD MD rn Sims, Marcus, DO DO ms3 Jaylene Cheng RN RN al5 Corrections: (The following items were deleted from the chart) 06:00 06:00 CBC+H.LAB.BRZ ordered. EDMS EDMS 06:00 06:00 COMPREHENSIVE METABOLIC PANEL+C.LAB.BRZ ordered. EDMS EDMS 06:00 06:00 LIPASE+C.LAB.BRZ ordered. EDMS EDMS 06:00 06:00 Abdomen Pelvis W Con+CT.RAD.BRZ ordered. EDMS EDMS
[2024-12-17 09:54] VITALS: BP 132/72; TEMP 98; O2SAT 99
== END 2024-12-17 08:37 | disposition home or self-care (01) ==
LOC: ER 05:24
DX: R11.0 Nausea (principal); R63.0 Anorexia; K51.50 Left sided colitis without complications; R10.13 Epigastric pain; R53.1 Weakness
CPT/HCPCS: 85025; 36415; 83690; 80053; 74177; 96375; 96374; 99284; Q9967; J2405; J7030